=== PATIENT | male | born 1955 | race Caucasian/White ===

== ENCOUNTER 2017-10-23 11:59 | Emergency (ER) | payer OTHER ==
[~2017-10-23] VITALS: Ht 177.8 cm; Wt 111.1 kg
[~2017-10-23 11:59] MED LIST: AMLODIPINE BESYL5 MG PO; CLONIDINE HCL0.3 MG PO; HYDRALAZINE HCL25 MG PO; HYDROCHLOROTHIA25 MG PO; LABETALOL HCL300 MG PO; PRAVASTATIN SOD40 MG PO; TORSEMIDE20 MG PO
--- OUTSIDE RECORDS SUMMARY | 2017-10-23 12:01 | XMS REPORT | Clinical Summary ---
Author Author GUS GTxSt. Luke'S Meridian Medical CenterAyi Laile [facility] CenterNoiseFreeKadlec [facility] Address Unknown Phone Unavailable Care Team Providers Care Clam Shucker Name Role Phone PCP Unavailable Allergies Active Allergy Reactions Severity Noted Date Comments Atorvastatin Other (See Comments) High 04/30/2015 Joint pain Could not walk Current Medications Prescription Sig. Disp. Refills Start End Date Status Date rivaroxaban (XARELTO) 20 Take 1 tablet (20 mg 90 tablet 3 05/01/20 Active mg Tab tablet total) by mouth daily 15 with dinner. aspirin 81 MG EC tablet Take 81 mg by mouth Active daily. torsemide (DEMADEX) 20 MG Take 20 mg by mouth Active tablet daily. ezetimibe (ZETIA) 10 mg Take 10 mg by mouth Active tablet daily. spironolactone Take 25 mg by mouth Active (ALDACTONE) 25 MG tablet daily. cloNIDine HCl (CATAPRES) Take 1 tablet (0.2 mg 60 tablet 3 10/09/19 10/09/19 Active 0.2 MG tablet total) by mouth 2 (two) 18 19 times daily. colchicine (COLCRYS) 0.6 Take 0.5 tablets (0.3 mg 60 tablet 0 10/08/ 20 Active mg tablet total) by mouth 2 (two) 18 times daily Takes 1/2 tablet twice a day . dilTIAZem (CARDIZEM CD) Take 1 capsule (180 mg 90 capsule 3 10/18/19 10/18/19 Active 180 MG 24 hr capsule total) by mouth daily. 18 19 metoprolol 75 mg Tab Take 150 mg by mouth 2 90 tablet 3 10/18/1908/03 Active (two) times daily. 18 19 amiodarone (PACERONE) 400 Take 1 tablet (400 mg 90 tablet 3 10/18/19 10/18/19 Active MG tablet total) by mouth 2 (two) 18 19 times daily. hydrochlorothiazide Take 25 mg by mouth daily 10/06/19 Discontin (HYDRODIURIL) 25 MG . 18 ued tablet pravastatin (PRAVACHOL) Take 40 mg by mouth 10/07/19 Discontin 40 MG tablet nightly. 18 ued labetalol (NORMODYNE) 300 Take 1.5 tablets (450 mg 180 tablet 0 10/07/19 Discontin MG tablet total) by mouth 2 (two) 15 18 ued times daily. diltiazem (CARDIZEM CD) Take 360 mg by mouth 10/09/19 Discontin 360 MG 24 hr capsule daily. 18 ued hydrALAZINE (APRESOLINE) Take 100 mg by mouth 2 10/18/19 Discontin 50 MG tablet (two) times daily as 18 ued needed. nebivolol (BYSTOLIC) 20 Take by mouth. 10/18/19 Discontin mg Tab 18 ued cloNIDine HCl (CATAPRES) Take 0.3 mg by mouth as 10/09/19 Discontin 0.3 MG tablet needed Takes 1/2 tab as 18 ued needed . colchicine (COLCRYS) 0.6 Take 0.6 mg by mouth 2 10/09/19 Discontin mg tablet (two) times daily Takes 18 ued 1/2 tablet twice a day . dofetilide (TIKOSYN) 500 Take 1 capsule (500 mcg 60 capsule 3 10/18/19 Discontin MCG capsule total) by mouth every 12 18 18 ued (twelve) hours for 14 days. Active Problems Problem Noted Date Atrial fibrillation with RVR ([facility]) 10/11/2017 A-fib ([facility]) 10/06/2017 Alcoholism (HCC) 07/02/2015 Volume overload 07/02/2015 Acute systolic congestive heart failure ([facility]) 07/02/2015 HTN (hypertension) 06/05/2015 Atrial fibrillation with rapid ventricular response ([facility]) 04/30/2015 Encounters Date Type Specialty Care Team Description 10/11/2017 [facility] Cardiology SpencerBrigido MD Atrial fibrillation with - Encounter Chilo Brown MD RVR ([facility]) (Primary 10/17/2017 Marlon Luo MD Dx);Acute systolic congestive heart failure ([facility]);NSTEMI (non-ST elevated myocardial infarction) (HCC);Secondary hypertension 10/06/2017 [facility] Cardiology Ruben Hassan MD Acute systolic congestive - Encounter heart failure (HCC) 10/09/2017 10/06/2017 Orders Only General Internal Medicine 10/06/2017 Anesthesia Phillip Darby MD Event 10/06/2017 Procedure Pass 10/06/2017 Surgery Ruben Hassan MD LEFT ATRIAL APPENDAGE CLOSURE W/ IMPLANT MCR - IP PROC ONLY 09/21/2017 Hospital Radiology Ruben Hassan MD Examination of Encounter participant in clinical trial;Persistent atrial fibrillation (HCC) 09/14/2017 Outside Orders Central Scheduling Ruben Hassan MD Examination of participant in clinical trial (Primary Dx);Persistent atrial fibrillation (HCC) 09/09/2017 Documentation Research Ruben Hassan MD after 10/22/2016 Family History Medical History Relation Name Comments Heart attack Mother Hypertension Mother Relation Name Status Comments Father Mother Social History Tobacco Use Types Packs/Day Years Used Date Former Smoker 1.5 40 Smokeless Tobacco: Never Used Comments: quit in 2011 Alcohol Use Drinks/Week oz/Week Comments Yes 60 Cans of 36.0 beer Sex Assigned at Date Recorded Not on file Last Filed Vital Signs Vital Sign Reading Time Taken Blood Pressure 143/92 10/17/2017 10:00 AM CDT Pulse 108 10/17/2017 10:00 AM CDT Temperature 36.7 C (98 F) 10/17/2017 7:00 AM CDT Respiratory Rate 20 10/17/2017 10:00 AM CDT Oxygen Saturation 96% 10/17/2017 6:00 AM CDT Inhaled Oxygen - - Concentration Weight 104.2 kg (229 lb 12.8 oz) 10/15/2017 4:45 AM CDT Height 177.8 cm (5' 10") 10/11/2017 3:54 PM CDT Body Mass Index 32.97 10/15/2017 4:45 AM CDT Plan of Treatment Date Type Specialty Care Team Description 10/25/2017 Office Visit Cardiology Brad Dickson NP [address] [facility] [place] [address] 11/05/2017 Orders Only Lab Ruben Hassan MD [address] [facility] [address] [place] [address] 11/05/2017 Appointment Cardiology Ruben Hassan MD [address] [facility] [address] [place] [address] [phone] 11/19/2017 Surgery Ruben Hassan MD EPS & ABLATION [address] [facility] [address] [place] [address] [phone] 11/19/2017 Procedure Pass 11/19/2017 Hospital Ruben Hassan MD Encounter [address] [facility] [address] [place] [address] [phone] Implants Implanted Type Area Shank Maker Device Expiration Model / Identifier Date Serial / [facility] N/A: Heart [employer] 05/19/2019 90-09 / Implanted: Qty: 1 on 10/06/2017 by shauna / Ruben Hassan MD [id number] Procedures Procedure Name Priority Date/Time Associated Diagnosis Comments CRITICAL CARE Routine 10/13/2017 Results for this 3:35 PM CDT procedure are in the results section. LEFT ATRIAL APPENDAGE 10/06/2017 Atrial fibrillation, CLOSURE W/ IMPLANT MCR 7:30 AM CDT unspecified type (HCC) - IP PROC ONLY Case Notes (1) POP6 (CV ANES) BACK UP SURG/JULIOCESAR IN AM [facility] TRIAL after 10/22/2016 Results * RHYTHM STRIP - SCAN (10/19/2017 3:00 PM) Only the most recent of 2 results within the time period is included. * CBC with platelet count + automated diff (10/17/2017 2:51 AM) Only the most recent of 3 results within the time period is included. Component Value Ref Range WBC 8.5 3.5 - 10.5 K/ L RBC 4.18 (L) 4.63 - 6.08 M/ L Hemoglobin 12.2 (L) 13.7 - 17.5 GM/DL Hematocrit 37.4 (L) 40.1 - 51.0 % MCV 89.5 79.0 - 92.2 fL MCH 29.2 25.7 - 32.2 pg MCHC 32.6 32.3 - 36.5 GM/DL RDW 13.5 11.6 - 14.4 % Platelets 343 150 - 450 K/CU MM MPV 10.6 9.4 - 12.4 fL nRBC 0 0 - 0 /100 WBC % Neutros 75 % % Lymphs 10 % % Monos 13 % % Eos 1 % % Baso 0 % # Neutros 6.40 (H) 1.78 - 5.38 K/ L # Lymphs 0.87 (L) 1.32 - 3.57 K/ L # Monos 1.08 (H) 0.30 - 0.82 K/ L # Eos 0.09 0.04 - 0.54 K/ L # Baso 0.02 0.01 - 0.08 K/ L Immature 0 0 - 1 % Granulocytes-Relative Specimen Performing Laboratory Blood - Line, [place] [address] * CBC with platelet count + automated diff (10/17/2017 2:51 AM) Only the most recent of 3 results within the time period is included. Specimen Performing Laboratory Blood Narrative The following orders were created for panel order CBC with platelet count + automated diff. Procedure Abnormality Status --------- - ------ CBC with platelet count ...[[id number]]AbnormalFinal result Please view results for these tests on the individual orders. * Magnesium (10/17/2017 2:51 AM) Only the most recent of 11 results within the time period is included. Component Value Ref Range Magnesium 2.2Comment: Specimen slightly hemolyzed 1.6 - 2.6 mg/dL Specimen Performing Laboratory Blood - Line, Venous [place] [id number] * Basic Metabolic Panel (10/17/2017 2:51 AM) Only the most recent of 4 results within the time period is included. Component Value Ref Range Sodium 130 (L) 136 - 145 meq/L Potassium 4.8Comment: Specimen slightly hemolyzed 3.5 - 5.1 meq/L Chloride 97 (L) 98 - 107 meq/L CO2 23 22 - 29 meq/L BUN 18 7 - 21 mg/dL Creatinine 1.02Comment: Specimen slightly hemolyzed 0.57 - 1.25 mg/dL Glucose 98 70 - 105 mg/dL Calcium 8.3 (L) 8.4 - 10.2 mg/dL EGFR 74Comment: ESTIMATED GFR IS NOT ACCURATE mL/min/1.73 sq m CREATININE CLEARANCE IN PREDICTING GLOMERULAR FILTRATION RATE. ESTIMATED GFR IS NOT APPLICABLE FOR DIALYSIS PATIENTS. Specimen Performing Laboratory Blood - Line, [place] [address] [address] * Phosphorus (10/16/2017 5:51 AM) Only the most recent of 5 results within the time period is included. Component Value Ref Range Phosphorus 3.7 2.3 - 4.7 mg/dL Specimen Performing Laboratory Blood - Line, Venous [address] [address] * ED ECG Interpretation (10/13/2017 3:35 PM) Brigido Wilson MD 10/13/20173:35 PM ECG/EKG Interpretation Date/Time: 10/11/2017 4:00 PM Performed by: BRIGIDO VELÁZQUEZ Authorized by: BRIGIDO VELÁZQUEZ The ECG was interpreted by ED physician. The ECG is interpreted as atrial fibrillation. Rate is tachycardic. Heart rate is 143 BPM. Conduction: conduction normal. ST segments normal. T waves normal. [place] is normal. Clinical Impression: abnormal ECGECG reviewed and does not meet STEMI criteria. Patient tolerance: Patient tolerated the procedure well with no immediate complications * Critical Care (10/13/2017 3:35 PM) Brigido Wilson MD 10/13/20173:35 PM Critical Care Performed by: BRIGIDO VELÁZQUEZ Authorized by: BRIGIDO VELÁZQUEZ Total critical care time: 60 minutes Critical care time was exclusive of separately billable procedures and treating other patients and teaching time. Critical care was necessary to treat or prevent imminent or life-threatening deterioration of the following conditions: cardiac failure (afib RVR. NSTEMI). Critical care was time spent personally by me on the following activities: development of treatment plan with patient or surrogate, discussions with consultants, blood draw for specimens, interpretation of cardiac output measurements, evaluation of patient's response to treatment, examination of patient, ordering and review of laboratory studies, ordering and performing treatments and interventions, obtaining history from patient or surrogate, ordering and review of radiographic studies, pulse oximetry, re-evaluation of patient's condition and review of old charts. * EKG-SCANNED (10/13/2017 1:00 PM) * ECHOCARDIOGRAM REPORT - SCAN (10/12/2017 4:21 PM) Only the most recent of 2 results within the time period is included. * Troponin I (10/12/2017 12:28 PM) Only the most recent of 4 results within the time period is included. Component Value Ref Range Troponin I 0.58 () 0.00 - 0.03 ng/mL Specimen Performing Laboratory Blood - Arm, [place] [address] Narrative Troponin I (TnI) levels must be interpreted in the context of the presenting symptoms and the clinical findings. Elevated TnI levels indicate myocardial damage, but are not specific for ischemic heart disease. Elevated TnI levels are seen in patients with other cardiac conditions (including myocarditis and congestive heart failure), and slight TnI elevations occur in patients with other conditions, including sepsis, renal failure, acidosis, acute neurological disease, and persistent tachyarrhythmia. * Transthoracic 2D echo w/ doppler (cw/pw/color) (10/12/2017 9:25 AM) Component Value Ref Range Ejection Fraction Specimen Performing Laboratory [facility] ECHO HEART[facility] MKCKESSON CPACS Narrative Transthoracic Echocardiography Report (TTE) Demographics Patient Name Yanelis GUARDADO of Study10/12/2017 IVÁN [id number] Male Visit Number [id number] [id number] Room LaimveB450 Number Date of Birth1955Referring Seun Page Physician Age62 year(s)Urology Physician Lizz Leone, RADHA Macias, Interpreting Silas Monroy MD Procedure Type of Study TTE procedure:2DECHO W DOPPLER(CW/PW/COLOR) (IJEOMA) Indications:Suspected Pericardial conditions. Clinical History HGB 13.7 HCT 42.9 % CHF, A-fib, HLD, HTN, JACK, Alcoholism s/p Lariat (10/06/2017) Height: 70 inches Weight: 103.87 kg (229 lbs) BSA: 2.21 m^2 BMI: 32.86 kg/m^2 HR: 145 bpm BP: 170/112 mmHg Summary Aortic root size (SInus of Valsalva diameter) is normal . The left ventricle is chamber size (by vol index) is small. Mild concentric LV hypertrophy. Global hypokinesis. Estimated LVEF by qualitative assessment is mildly reduced (40-44%) . Estimation of LV systolic function is less reliable in the presence of tachycardia. A mlcof-eu-aiulwbjl pericardial effusion is present . The pericardial effusion appears circumferential . RV chamber size appears mildly enlarged by limited views . Global RV systolic function is depressed . TV structure is normal. Mild tricuspid regurgitation. Estimated peak systolic PA pressure is 60-65 mmHg . The estimated RA pressure by IVC dynamics 11-15mmHg . Previous Study No prior exam available for comparison. Signature Findings Technical Quality: Technically adequate exam. Rhythm/BPAtrial fibrillation with rapid ventricular response. Left Ventricle The left ventricle is chamber size (by vol index ) is small. Mild concentric LV hypertrophy. Global hypokinesis. Estimated LVEF by qualitative assessment is mildly reduced (40-44%) . Estimation of LV systolic function is less reliable in the presence of tachycardia. Left AtriumLA size is moderately enlarged (42-48 ml/m2 ) . Right VentricleRV chamber size appears mildly enlarged by limited views . Global RV systolic function is depressed . Right Atrium RA cavity size is severely enlarged . Aortic Valve Mild AoV cusp thickening. No evidence of aortic regurgitation. No evidence of aortic stenosis. Mitral Valve Mild MV leaflet thickening. Mild mitral regurgitation. Tricuspid ValveTV structure is normal. Mild tricuspid regurgitation. Estimated peak systolic PA pressure is 60-65 mmHg . Pulmonic Valve Mild pulmonary regurgitation. Normal PV structure appears normal by available views. AortaAortic root size (SInus of Valsalva diameter) is normal . PericardiumA lhbcd-re-fmtksufd pericardial effusion is present . The pericardial effusion appears circumferential . IVC/SVC/PA/PV/PleuralThe estimated RA pressure by IVC dynamics 11-15mmHg . The inferior vena cava size is increased . The inferior vena cava is adequately visualized. Chambers/Structures Left Atrium LA Volume: 99.68 ml LA Area: 28.41 cm^2 LA Vol. Index: 45 ml/m^2 Left Ventricle LVIDd: 3.92 cm LV Septum Diastolic: 1.29 cm LV PW Diastolic: 1.29 cm LVEDV Perry's:74.55 ml LVESV Perry's:39.89 ml LVEF Perry's: 46.5 %LVEDVI: 34 ml /m^2 LVESVI: 18 ml/m^2 LVOT Diameter: 2.13 cm Aorta Ao Root S of Maria Esther.: 3.42 cm Doppler/Quantitative Measurements Aortic Valve Peak Velocity: 1.08 m/sMean Velocity: 0.75 m/s Peak Gradient: 4.67 mmHg Mean Gradient: 2.59 mmHg AV Area (continuity): 2.7 cm^2 AV VTI: 15.08 cm AV DVI: 0.76 LVOT Peak Velocity: 0.78 m/s Peak Gradient: 2.45 mmHg Mean Velocity: 0.52 m/s Mean Gradient: 1.26 mmHg LVOT Diameter: 2.13 cmLVOT VTI: 11.42 cm LVOT Area: 3.56 cm^2LVOT SV:40.67 ml LVOT CO: 5.9 l/minLVOT CI: 2.67 l/min/m^2 Tricuspid Valve TR Velocity: 3.7 m/s TR Gradient: 54.9 mmHg Procedure Note Interface, External Ris In - 10/12/2017 3:52 PM CDT Transthoracic Echocardiography Report (TTE) Demographics Patient Name IWONA GUARDADO Date of Study 10/12/2017 IVÁN Gender Male Visit Number [id number] Race Room Number C831 Number Date of 1955 Referring Seun Page Physician Age 62 year(s) Urology Physician Lizz Leone, [facility] Care Tech Chasidy Macias, Interpreting Semaj Montes [facility] Physician Procedure Type of Study TTE procedure:2DECHO W DOPPLER(CW/PW/COLOR) ([facility]) Indications:Suspected Pericardial conditions. Clinical History HGB 13.7 HCT 42.9 % CHF, A-fib, HLD, HTN, JACK, Alcoholism s/p Lariat (10/06/2017) Height: 70 inches Weight: 103.87 kg (229 lbs) BSA: 2.21 m^2 BMI: 32.86 kg/m^2 HR: 145 bpm BP: 170/112 mmHg Summary Aortic root size (SInus of Valsalva diameter) is normal . The left ventricle is chamber size (by vol index) is small. Mild concentric LV hypertrophy. Global hypokinesis. Estimated LVEF by qualitative assessment is mildly reduced (40-44%) . Estimation of LV systolic function is less reliable in the presence of tachycardia. A olsnx-zm-qqioypfz pericardial effusion is present . The pericardial effusion appears circumferential . RV chamber size appears mildly enlarged by limited views . Global RV systolic function is depressed . TV structure is normal. Mild tricuspid regurgitation. Estimated peak systolic PA pressure is 60-65 mmHg . The estimated RA pressure by IVC dynamics 11-15mmHg . Previous Study No prior exam available for comparison. Signature Findings Technical Quality: Technically adequate exam. Rhythm/BP Atrial fibrillation with rapid ventricular response. Left Ventricle The left ventricle is chamber size (by vol index) is small. Mild concentric LV hypertrophy. Global hypokinesis. Estimated LVEF by qualitative assessment is mildly reduced (40-44%) . Estimation of LV systolic function is less reliable in the presence of tachycardia. Left Atrium LA size is moderately enlarged (42-48 ml/m2) . Right Ventricle RV chamber size appears mildly enlarged by limited views . Global RV systolic function is depressed . Right Atrium RA cavity size is severely enlarged . Aortic Valve Mild AoV cusp thickening. No evidence of aortic regurgitation. No evidence of aortic stenosis. Mitral Valve Mild MV leaflet thickening. Mild mitral regurgitation. Tricuspid Valve TV structure is normal. Mild tricuspid regurgitation. Estimated peak systolic PA pressure is 60-65 mmHg . Pulmonic Valve Mild pulmonary regurgitation. Normal PV structure appears normal by available views. Aorta Aortic root size (SInus of Valsalva diameter) is normal . Pericardium A mgemj-yr-hxxpfplp pericardial effusion is present . The pericardial effusion appears circumferential . IVC/SVC/PA/PV/Pleural The estimated RA pressure by IVC dynamics 11-15mmHg . The inferior vena cava size is increased . The inferior vena cava is adequately visualized. Chambers/Structures Left Atrium LA Volume: 99.68 ml LA Area: 28.41 cm^2 LA Vol. Index: 45 ml/m^2 Left Ventricle LVIDd: 3.92 cm LV Septum Diastolic: 1.29 cm LV PW Diastolic: 1.29 cm LVEDV Perry's:74.55 ml LVESV Perry's:39.89 ml LVEF Perry's: 46.5 % LVEDVI: 34 ml/m^2 LVESVI: 18 ml/m^2 LVOT Diameter: 2.13 cm Aorta Ao Root S of Maria Esther.: 3.42 cm Doppler/Quantitative Measurements Aortic Valve Peak Velocity: 1.08 m/s Mean Velocity: 0.75 m/s Peak Gradient: 4.67 mmHg Mean Gradient: 2.59 mmHg AV Area (continuity): 2.7 cm^2 AV VTI: 15.08 cm AV DVI: 0.76 LVOT Peak Velocity: 0.78 m/s Peak Gradient: 2.45 mmHg Mean Velocity: 0.52 m/s Mean Gradient: 1.26 mmHg LVOT Diameter: 2.13 cm LVOT VTI: 11.42 cm LVOT Area: 3.56 cm^2 LVOT SV:40.67 ml LVOT CO: 5.9 l/min LVOT CI: 2.67 l/min/m^2 Tricuspid Valve TR Velocity: 3.7 m/s TR Gradient: 54.9 mmHg * CBC (Hemogram only) (10/12/2017 5:32 AM) Only the most recent of 4 results within the time period is included. Component Value Ref Range WBC 10.8 (H) 3.5 - 10.5 K/ L RBC 4.77 4.63 - 6.08 M/ L Hemoglobin 13.7 13.7 - 17.5 GM/DL Hematocrit 42.9 40.1 - 51.0 % MCV 89.9 79.0 - 92.2 fL MCH 28.7 25.7 - 32.2 pg MCHC 31.9 (L) 32.3 - 36.5 GM/DL RDW 13.6 11.6 - 14.4 % Platelets 281 150 - 450 K/CU MM MPV 10.9 9.4 - 12.4 fL nRBC 0 0 - 0 /100 WBC Specimen Performing [place] [address] * XR chest 1 view portable / bedside (10/11/2017 5:58 PM) Specimen Performing Laboratory GE RIS Narrative FINAL REPORT Chest, one view HISTORY: Chest pain COMPARISON: 04/30/2015 DISCUSSION: Lungs are clear without focal consolidation. Cardiomediastinal silhouette is persistently enlarged but unchanged from prior examination. No acute osseous abnormality. Trace left pleural effusion. No pneumothorax. Visualized portions of the upper abdomen are unremarkable. IMPRESSION: Unchanged enlargement of the cardiomediastinal silhouette. Trace left pleural effusion. Signed: Kush Garcia MD Report Verified Date/Time:10/11/2017 18:15:43 Reading Location: [address] Body Reading Room Procedure Note Interface, External Ris In - 10/11/2017 6:18 PM CDT FINAL REPORT Chest, one view HISTORY: Chest pain COMPARISON: 04/30/2015 DISCUSSION: Lungs are clear without focal consolidation. Cardiomediastinal silhouette is persistently enlarged but unchanged from prior examination. No acute osseous abnormality. Trace left pleural effusion. No pneumothorax. Visualized portions of the upper abdomen are unremarkable. IMPRESSION: Unchanged enlargement of the cardiomediastinal silhouette. Trace left pleural effusion. Signed: Kush Garcia MD Report Verified Date/Time: 10/11/2017 18:15:43 Reading Location: [address] Body Reading Room * POC-Lactic Acid, Venous (10/11/2017 4:24 PM) Component Value Ref Range POC-Lactic Acid, Venous 1.3Comment: TESTED AT [address] 0.9 - 1.7 mmol/[place] [address] Specimen Performing Laboratory Blood [address] [address] * Manual Differential (10/11/2017 4:10 PM) Component Value Ref Range % Neutros 76 % % Lymphs 13 % % Monos 9 % % Bands 1 0 - 10 % % Atypical Lymphs 1 (H) 0 - 0 % # Neutros 8.44 (H) 1.78 - 5.38 K/ul # Lymphs 1.44 1.32 - 3.57 K/ul # Monos 1.00 (H) 0.30 - 0.82 K/uL # Bands 0.11 0.00 - 0.80 K/uL # Atypical Lymphs 0.11 (H) 0.00 - 0.00 K/uL Total Counted 100 Smudge Cells Present Giant Platelet Present Polychromasia 1+ few Poikilocytes 1+ few Elliptocytes 1+ few Platelet Conc Adequate Specimen Performing Laboratory Blood [address] [address] Narrative Received comment: User comments: Slide comments: * PT/aPTT (10/11/2017 4:10 PM) Component Value Ref Range Protime 23.9 (H) 11.7 - 14.7 seconds INR 2.1 <=5.9 PTT 40.0 (H) 22.5 - 36.0 seconds Specimen Performing Laboratory Blood [address] [address] Narrative RECOMMENDED COUMADIN/WARFARIN INR THERAPY RANGES STANDARD DOSE: 2.0 - 3.0 Includes: PROPHYLAXIS for venous thrombosis, systemic embolization; TREATMENT for venous thrombosis and/or pulmonary embolus. HIGH RISK: Target INR is 2.5-3.5 for patients with mechanical heart valves. * B-type Natriuretic Factor (BNP) (10/11/2017 4:10 PM) Component Value Ref Range BNP 1212 (H) 0 - 100 pg/mL Specimen Performing Laboratory Blood [address] [place] [address] * Lipase (10/11/2017 4:10 PM) Component Value Ref Range Lipase 42 8 - 78 U/L Specimen Performing Laboratory Blood [address] [address] * Comprehensive metabolic panel (10/11/2017 4:10 PM) Component Value Ref Range Protein, Total 7.3 6.0 - 8.3 gm/dL Albumin 3.9 3.5 - 5.0 g/dL Alkaline Phosphatase 106 40 - 150 U/L Total Bilirubin 1.2 0.2 - 1.2 mg/dL Sodium 135 (L) 136 - 145 meq/L Potassium 4.0 3.5 - 5.1 meq/L Chloride 101 98 - 107 meq/L CO2 22 22 - 29 meq/L BUN 19 7 - 21 mg/dL Creatinine 1.04 0.57 - 1.25 mg/dL Glucose 116 (H) 70 - 105 mg/dL Calcium 9.6 8.4 - 10.2 mg/dL AST 58 (H) 5 - 34 U/L ALT 61 (H) 6 - 55 U/L EGFR 72Comment: ESTIMATED GFR IS NOT ACCURATE mL/min/1.73 sq m CREATININE CLEARANCE IN PREDICTING GLOMERULAR FILTRATION RATE. ESTIMATED GFR IS NOT APPLICABLE FOR DIALYSIS PATIENTS. Specimen Performing Laboratory Blood [address] [address] * ECG 12 lead (10/11/2017 4:00 PM) Only the most recent of 8 results within the time period is included. Specimen Performing Laboratory GE MUSE Narrative Ventricular Rate 143 BPM Atrial Rate 133 BPM QRS Duration 86 ms Q-T Interval 280 ms QTC Calculation(Bazett) 432 ms R [place] 53 degrees T [place] 66 degrees Atrial fibrillation with rapid ventricular response Abnormal ECG When compared with ECG of 09-OCT-2017 11:10, No significant change was found Confirmed by MD MYLES, JOHNY Desai ([id number]) on 10/12/2017 6:23:59 AM Procedure Note Interface, External Ris In - 10/12/2017 6:24 AM CDT Ventricular Rate 143 BPM Atrial Rate 133 BPM QRS Duration 86 ms Q-T Interval 280 ms QTC Calculation(Bazett) 432 ms R [place] 53 degrees T [place] 66 degrees Atrial fibrillation with rapid ventricular response Abnormal ECG When compared with ECG of 09-OCT-2017 11:10, No significant change was found Confirmed by MD MYLES, JOHNY Desai ([id number]) on 10/12/2017 6:23:59 AM * POC-Glucose meter (10/09/2017 7:59 AM) Only the most recent of 6 results within the time period is included. Component Value Ref Range POC-Glucose Meter 102Comment: TESTED AT [address] 70 - 110 mg/[place] [address] Specimen [place] [address] * BUN (10/09/2017 5:46 AM) Only the most recent of 3 results within the time period is included. Component Value Ref Range BUN 22 (H) 7 - 21 mg/dL Specimen Performing Laboratory Blood [address] [address] * Potassium (10/09/2017 5:46 AM) Only the most recent of 4 results within the time period is included. Component Value Ref Range Potassium 4.1 3.5 - 5.1 meq/L Specimen Performing Laboratory [address] [address] * Creatinine (10/09/2017 5:46 AM) Only the most recent of 3 results within the time period is included. Component Value Ref Range Creatinine 0.94 0.57 - 1.25 mg/dL EGFR 81Comment: ESTIMATED GFR IS NOT ACCURATE mL/min/1.73 sq m CREATININE CLEARANCE IN PREDICTING GLOMERULAR FILTRATION RATE. ESTIMATED GFR IS NOT APPLICABLE FOR DIALYSIS PATIENTS. Specimen Performing Laboratory [address] [address] * Electrolytes (10/09/2017 5:46 AM) Only the most recent of 3 results within the time period is included. Component Value Ref Range Sodium 137 136 - 145 meq/L Potassium 4.1 3.5 - 5.1 meq/L Chloride 103 98 - 107 meq/L CO2 24 22 - 29 meq/L Specimen Performing Laboratory [place] [id number] * TRANSFUSION SERVICE REPORT - SCAN (10/07/2017 5:42 PM) * CARDIAC CATH REPORT - SCAN (10/07/2017 3:10 PM) * POC ACTIVATED CLOTTING TIME (10/06/2017 10:49 AM) Only the most recent of 3 results within the time period is included. Component Value Ref Range Activated Clotting Time 136Comment: TESTED AT [facility] [address] [facility] [address] Specimen Performing Laboratory Blood [facility] [address] [place] [address] * Transesophageal echo (10/06/2017 8:07 AM) Component Value Ref Range Ejection Fraction Specimen Performing Laboratory [facility] CPACS Narrative Transesophageal Echocardiography Report (JULIOCESAR) Demographics Patient Name IWONA GUARDADO Date of Study 10/06/2017 IVÁN [id number] Gender Male Visit Number [id number] Race Unknown [id number] Number 6A03 Number Date of Birth1955 Referring Physician Age62 year(s) Urology Physician Floyd Boggs [facility] ReneeStshaylee Carrera MD Fellow Junior Rhoades Procedure Type of Study JULIOCESAR procedure:TRANSESOPHAGEAL ECHO (STAT) Indications:Guidance of percuataneous non coronary cardiac procedures. Clinical History A-FIB, CHF, HLD, HTN, JACK, ETOH ABUSE Height: 70 inches Weight: 106.59 kg (235 lbs) BSA: 2.24 m^2 BMI: 33.72 kg/m^2 HR: 117 bpm BP: 141/81 mmHg JULIOCESAR Performed By: the attending alone Signature Findings LeftNormal left ventricular chamber size. Normal wall thickness. Ventricle Normal overall left ventricular systolic function. No apparent segmental wall motion abnormalities. Left Atrium LA size is normal . LA appendage morphology is simple (wind sock). Images demonstrate interval closure of the MADELIN. The MADELIN appears excluded without evidence of doppler color flow. Right The right ventricular chamber size and systolic function are Ventricle within normal limits. Right RA size is severely dilated. Atrium AtrialA small iatrogenic atrial septal defect (ASD) is present . Septum AorticNormal AoV structure and function. Valve No evidence of aortic regurgitation. MitralNormal MV structure. Valve Mild mitral regurgitation. Tricuspid TV structure is normal. Valve Mild tricuspid regurgitation. Aorta Aortic root size (SInus of Valsalva diameter) is normal . Proximal ascending aorta size is normal . Doppler/Quantitative Measurements Tricuspid Valve TR Velocity: 2.64 m/s TR Gradient: 27.95 mmHg Procedure Note Interface, External Ris In - 10/06/2017 6:43 PM CDT Transesophageal Echocardiography Report (JULIOCESAR) Demographics Patient Name IWONA GUARDADO Date of Study 10/06/2017 IVÁN Gender Male Visit Number [id number] Race Unknown Room Number 6A03 Number Date of 1955 Referring Physician Age 62 year(s) Urology Physician Floyd Boggs [facility] Interpreting Willow Carrera MD Fellow Junior Rhoades Procedure Type of Study JULIOCESAR procedure:TRANSESOPHAGEAL ECHO (STAT) Indications:Guidance of percuataneous non coronary cardiac procedures. Clinical History A-FIB, CHF, HLD, HTN, JACK, ETOH ABUSE Height: 70 inches Weight: 106.59 kg (235 lbs) BSA: 2.24 m^2 BMI: 33.72 kg/m^2 HR: 117 bpm BP: 141/81 mmHg JULIOCESAR Performed By: the attending alone Signature Findings Left Normal left ventricular chamber size. Normal wall thickness. Ventricle Normal overall left ventricular systolic function. No apparent segmental wall motion abnormalities. Left Atrium LA size is normal . LA appendage morphology is simple (wind sock). Images demonstrate interval closure of the MADELIN. The MADELIN appears excluded without evidence of doppler color flow. Right The right ventricular chamber size and systolic function are Ventricle within normal limits. Right RA size is severely dilated. Atrium Atrial A small iatrogenic atrial septal defect (ASD) is present . Septum Aortic Normal AoV structure and function. Valve No evidence of aortic regurgitation. Mitral Normal MV structure. Valve Mild mitral regurgitation. Tricuspid TV structure is normal. Valve Mild tricuspid regurgitation. Aorta Aortic root size (SInus of Valsalva diameter) is normal . Proximal ascending aorta size is normal . Doppler/Quantitative Measurements Tricuspid Valve TR Velocity: 2.64 m/s TR Gradient: 27.95 mmHg * Type and screen, automated (10/06/2017 5:55 AM) Component Value Ref Range ABO/RH AUTOMATED (BEAKER) B POSITIVE Ab Scrn NEGATIVE Specimen Performing Laboratory Blood [facility] [address] [address] * CT heart without & with gating & 3d (09/21/2017 9:08 AM) Specimen Performing Laboratory [employer] [facility] Narrative Addendum Begins REPORT STATUS:A ADDENDUM: Study reviewed by radiology. Agree with the nonvascular findings as described below. Signed: Pj Bennett MD Report Verified Date/Time:09/21/2017 15:11:13 Reading Location: [place] [address] Angio Body Reading Room Addendum Ends FINAL REPORT CT angiography of the pulmonary veins, 21 Sep 2017 INDICATION: This is a 53years old male with history of atrial fibrillation presented here for IRB approved AMAZE protocol. This study is performed in an attempt to avoid invasive procedure. TECHNIQUE:Spiral acquisition before and during intravenous contrast administration using a Cleopatra multidetector cardiac CT scanner without prospective ECG triggering.Multiplanar reconstructions were performed interactively by the interpreting physician using an independent ([employer]) workstation. Please refer to the contrast sheet scanned in the EPIC system for the amount and route of contrast given. This exam was performed according to our departmental dose-optimisation programme, which includes automated exposure control, adjustment of the mA and/or kV according to patient size and/or use of iterative reconstruction technique. Dose modulation, iterative reconstruction, and/or weight based adjustment of the mA/kV was utilized to reduce the radiation dose to as low as reasonably achievable. ECG gating was required this examination. FINDINGS: VASCULAR: The pericardium appears normal. No pericardial effusion is identified. The central pulmonary artery is at the upper limits of normal in calibre. Interestingly, a pulmonary "sling" is identified, where the left ovary artery arises from the right coronary artery, and the left palm artery travels between the trachea and esophagus, for example image 25 of the 80% reconstruction. This is an anatomical variant. In the available images, no obvious compression or stenosis to the trachea is identified. The thoracic aorta is normal in course, calibre, and contour. There is no evidence for acute aortic pathology. The arch vessel branching pattern is normal, and the origins of the arch branch vessels are all widely patent. The cardiac chambers demonstrate normal atrioventricular and ventriculoarterial concordance, and systemic and pulmonary venous return. The left ventricle is normal in size, and no abnormal mass is identified. The coronary artery origins are normal. Coronary artery calcification is identified in the LAD, LCx, and RCA territories. Left and right atrial enlargement is identified. No thrombus is visualized in the left atrial appendage. The left atrial appendage pathology is not chicken wing. Pulmonary vein morphology is normal with pairs of pulmonary veins on each side of the left atrium. There is no evidence for pulmonary vein stenosis. Quantitative pulmonary vein ostial mapping (measured utilizing MPR analysis) is as follows: Pulmonary veinMajor axisMinor axisCross-sectional area * Right upper 26 mm 23 mm4.1 cm2 Right lower 25 mm 23 mm4.3 cm2 Left upper23 mm 11 mm2.0 cm2 Left lower 22 mm 10 mm1.6 cm2 NON-VASCULAR: In the noncontrast images, the visualised thyroid gland appears unremarkable. The chest wall and mediastinum appears normal. Some scattered lymph nodes are seen, less than 1 cm in size, considered nonspecific in nature. The lymph node in the right hilum could be minimally prominent, better seen in the contrast phase. Bilateral gynaecomastia is noted. In the lung windows, no obvious endobronchial lesion is seen and no pleural effusion is identified. Some debris is identified in the posterior aspect of the oesophagus, in the precontrast series. Minimal dependent changes are seen. Some scarring is identified in the left upper lobe at image 9. Overall, no suspicious pulmonary nodule is identified. Limited images of the upper abdomen reveals no gross abnormality. No acute bony pathology is identified, except for the presence of some degenerative changes. IMPRESSIONS: 1.The left atrium is enlarged.No thrombus is visualized in the left atrial appendage. The left atrial appendage pathology is not chickenwing. See snapshot for details. The core lab/pheresis specialist will provide measurement for the left atrial appendage for the AMAZE procedure. Coronary atherosclerosis in the left and the right coronary territories. 2.Pulmonary vein morphology is normal with pairs of pulmonary veins bilaterally.There is no evidence for pulmonary vein stenosis. Quantitative pulmonary vein ostial mapping is as noted above. 3.Normal thoracic aorta, where visualised. No ectasia or aneurysmal dilation is seen. Scattered calcification is seen in the descending thoracic aorta. 4.No acute pulmonary pathology. Pulmonary findings as described above. 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 5.Other findings as described above 6.An addendum will be dictated regarding the non-vascular findings by the [employer]iture [employer] Inspector Radiologist. Signed: Abdulkadir Wilkins MD Report Verified Date/Time:09/21/2017 09:49:51 Reading Location: [place] [address] Cardiology MRI Procedure Note Interface, External Ris In - 09/21/2017 3:13 PM CDT Addendum Begins REPORT STATUS:A ADDENDUM: Study reviewed by radiology. Agree with the nonvascular findings as described below. Signed: Pj Bennett MD Report Verified Date/Time: 09/21/2017 15:11:13 Reading Location: [place] [id number] Angio Body Reading Room Addendum Ends FINAL REPORT CT angiography of the pulmonary veins, 21 Sep 2017 INDICATION: This is a 53 years old male with history of atrial fibrillation presented here for IRB approved AMAZE protocol. This study is performed in an attempt to avoid invasive procedure. TECHNIQUE: Spiral acquisition before and during intravenous contrast administration using a Cleopatra multidetector cardiac CT scanner without prospective ECG triggering. Multiplanar reconstructions were performed interactively by the interpreting physician using an independent ([employer]) workstation. Please refer to the contrast sheet scanned in the EPIC system for the amount and route of contrast given. This exam was performed according to our departmental dose-optimisation programme, which includes automated exposure control, adjustment of the mA and/or kV according to patient size and/or use of iterative reconstruction technique. Dose modulation, iterative reconstruction, and/or weight based adjustment of the mA/kV was utilized to reduce the radiation dose to as low as reasonably achievable. ECG gating was required this examination. FINDINGS: VASCULAR: The pericardium appears normal. No pericardial effusion is identified. The central pulmonary artery is at the upper limits of normal in calibre. Interestingly, a pulmonary "sling" is identified, where the left ovary artery arises from the right coronary artery, and the left palm artery travels between the trachea and esophagus, for example image 25 of the 80% reconstruction. This is an anatomical variant. In the available images, no obvious compression or stenosis to the trachea is identified. The thoracic aorta is normal in course, calibre, and contour. There is no evidence for acute aortic pathology. The arch vessel branching pattern is normal, and the origins of the arch branch vessels are all widely patent. The cardiac chambers demonstrate normal atrioventricular and ventriculoarterial concordance, and systemic and pulmonary venous return. The left ventricle is normal in size, and no abnormal mass is identified. The coronary artery origins are normal. Coronary artery calcification is identified in the LAD, LCx, and RCA territories. Left and right atrial enlargement is identified. No thrombus is visualized in the left atrial appendage. The left atrial appendage pathology is not chicken wing. Pulmonary vein morphology is normal with pairs of pulmonary veins on each side of the left atrium. There is no evidence for pulmonary vein stenosis. Quantitative pulmonary vein ostial mapping (measured utilizing MPR analysis) is as follows: Pulmonary vein Major axis Minor axis Cross-sectional area * Right upper 26 mm 23 mm 4.1 cm2 Right lower 25 mm 23 mm 4.3 cm2 Left upper 23 mm 11 mm 2.0 cm2 Left lower 22 mm 10 mm 1.6 cm2 NON-VASCULAR: In the noncontrast images, the visualised thyroid gland appears unremarkable. The chest wall and mediastinum appears normal. Some scattered lymph nodes are seen, less than 1 cm in size, considered nonspecific in nature. The lymph node in the right hilum could be minimally prominent, better seen in the contrast phase. Bilateral gynaecomastia is noted. In the lung windows, no obvious endobronchial lesion is seen and no pleural effusion is identified. Some debris is identified in the posterior aspect of the oesophagus, in the precontrast series. Minimal dependent changes are seen. Some scarring is identified in the left upper lobe at image 9. Overall, no suspicious pulmonary nodule is identified. Limited images of the upper abdomen reveals no gross abnormality. No acute bony pathology is identified, except for the presence of some degenerative changes. IMPRESSIONS: 1. The left atrium is enlarged. No thrombus is visualized in the left atrial appendage. The left atrial appendage pathology is not chicken wing. See snapshot for details. The core lab/pheresis specialist will provide measurement for the left atrial appendage for the AMAZE procedure. Coronary atherosclerosis in the left and the right coronary territories. 2. Pulmonary vein morphology is normal with pairs of pulmonary veins bilaterally. There is no evidence for pulmonary vein stenosis. Quantitative pulmonary vein ostial mapping is as noted above. 3. Normal thoracic aorta, where visualised. No ectasia or aneurysmal dilation is seen. Scattered calcification is seen in the descending thoracic aorta. 4. No acute pulmonary pathology. Pulmonary findings as described above. 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 5. Other findings as described above 6. An addendum will be dictated regarding the non-vascular findings by the Furniture [employer]als Inspector Radiologist. Signed: Abdulkadir Wilkins MD Report Verified Date/Time: 09/21/2017 09:49:51 Reading Location: [place] [address] Cardiology MRI * BUN and Creatinine (09/21/2017 7:25 AM) Component Value Ref Range BUN 21 7 - 21 mg/dL Creatinine 1.07 0.57 - 1.25 mg/dL EGFR 70Comment: ESTIMATED GFR IS NOT ACCURATE mL/min/1.73 sq m CREATININE CLEARANCE IN PREDICTING GLOMERULAR FILTRATION RATE. ESTIMATED GFR IS NOT APPLICABLE FOR DIALYSIS PATIENTS. Specimen Performing Laboratory Blood [facility] [address] [address] after 10/22/2016
--- OUTSIDE RECORDS SUMMARY | 2017-10-23 12:01 | XMS REPORT ---
Author Author [facility] Address Unknown Phone Unavailable Care Team Providers Care Supervisor [facility] Name Role Phone CONCETTA VELÁZQUEZ Unavailable Unavailable ISAIAH JARRETT Unavailable Unavailable Problems This patient has no known problems. Allergies, Adverse Reactions, Alerts This patient has no known allergies or adverse reactions. Medications This patient has no known medications. Results Test Description Test Time Test Comments Text Results Atomic Results Result Comments MAGNESIUM 2017-10-17 03:20:00 MAGNESIUM (BEAKER) (test xcww=465) 2.2 mg/dL 1.6-2.6 Specimen slightly hemolyzed BASIC METABOLIC [id number] 03:20:00* Test Item Value Reference Range Comments SODIUM (BEAKER) (test lhtf=711) 130 meq/L 136-145 POTASSIUM (BEAKER) (test dfhv=094) 4.8 meq/L 3.5-5.1 Specimen slightly hemolyzed CHLORIDE (BEAKER) (test pxqx=515) 97 meq/L 98-107 CO2 (BEAKER) (test jhgs=163) 23 meq/L 22-29 BLOOD UREA NITROGEN (BEAKER) (test aptg=411) 18 mg/dL 7-21 CREATININE (BEAKER) (test ydlb=659) 1.02 mg/dL 0.57-1.25 Specimen slightly hemolyzed GLUCOSE RANDOM (BEAKER) (test ieia=328) 98 mg/dL 70-105 CALCIUM (BEAKER) (test ywwf=556) 8.3 mg/dL 8.4-10.2 EGFR (BEAKER) (test kbug=0561) 74 mL/min/1.73 sq m ESTIMATED GFR IS NOT ACCURATE CREATININE CLEARANCE IN PREDICTING GLOMERULAR FILTRATION RATE. ESTIMATED GFR IS NOT APPLICABLE FOR DIALYSIS PATIENTS. CBC W/PLT COUNT & AUTO [id number] 03:00:00* Test Item Value Reference Range Comments WHITE BLOOD CELL COUNT (BEAKER) (test uaon=306) 8.5 K/ L 3.5-10.5 RED BLOOD CELL COUNT (BEAKER) (test drle=080) 4.18 M/ L 4.63-6.08 HEMOGLOBIN (BEAKER) (test paue=570) 12.2 GM/DL 13.7-17.5 HEMATOCRIT (BEAKER) (test iyan=076) 37.4 % 40.1-51.0 MEAN CORPUSCULAR VOLUME (BEAKER) (test soiu=063) 89.5 fL 79.0-92.2 MEAN CORPUSCULAR HEMOGLOBIN (BEAKER) (test nblx=206) 29.2 pg 25.7-32.2 MEAN CORPUSCULAR HEMOGLOBIN CONC (BEAKER) (test vzre=917) 32.6 GM/DL 32.3- 36.5 RED CELL DISTRIBUTION WIDTH (BEAKER) (test zvrf=713) 13.5 % 11.6-14.4 PLATELET COUNT (BEAKER) (test xgkw=254) 343 K/CU MM 150-450 MEAN PLATELET VOLUME (BEAKER) (test hmgj=931) 10.6 fL 9.4-12.4 NUCLEATED RED BLOOD CELLS (BEAKER) (test rxbo=118) 0 /100 WBC 0-0 NEUTROPHILS RELATIVE PERCENT (BEAKER) (test bjbc=334) 75 % LYMPHOCYTES RELATIVE PERCENT (BEAKER) (test heqy=244) 10 % MONOCYTES RELATIVE PERCENT (BEAKER) (test vuxw=312) 13 % EOSINOPHILS RELATIVE PERCENT (BEAKER) (test aqke=241) 1 % BASOPHILS RELATIVE PERCENT (BEAKER) (test akyj=599) 0 % NEUTROPHILS ABSOLUTE COUNT (BEAKER) (test mlmv=504) 6.40 K/ L 1.78-5.38 LYMPHOCYTES ABSOLUTE COUNT (BEAKER) (test qsum=313) 0.87 K/ L 1.32-3.57 MONOCYTES ABSOLUTE COUNT (BEAKER) (test zrke=899) 1.08 K/ L 0.30-0.82 EOSINOPHILS ABSOLUTE COUNT (BEAKER) (test xyfc=412) 0.09 K/ L 0.04-0.54 BASOPHILS ABSOLUTE COUNT (BEAKER) (test kxkx=741) 0.02 K/ L 0.01-0.08 IMMATURE GRANULOCYTES-RELATIVE PERCENT (BEAKER) (test ebwm=3943) 0 % 0-1 [id number] 06:38:00* Test Item Value Reference Range Comments PHOSPHORUS (BEAKER) (test xkmw=349) 3.7 mg/dL 2.3-4.7 [id number] 06:38:00* Test Item Value Reference Range Comments MAGNESIUM (BEAKER) (test clxj=823) 2.5 mg/dL 1.6-2.6 [id number] 05:17:00* Test Item Value Reference Range Comments PHOSPHORUS (BEAKER) (test liqr=737) 3.2 mg/dL 2.3-4.7 [id number] 05:17:00* Test Item Value Reference Range Comments MAGNESIUM (BEAKER) (test orzv=291) 2.6 mg/dL 1.6-2.6 [id number] 05:32:00* Test Item Value Reference Range Comments PHOSPHORUS (BEAKER) (test gakf=450) 4.0 mg/dL 2.3-4.7 [id number] 05:32:00* Test Item Value Reference Range Comments MAGNESIUM (BEAKER) (test tbkg=893) 2.2 mg/dL 1.6-2.6 [id number] 06:09:00* Test Item Value Reference Range Comments PHOSPHORUS (BEAKER) (test cilg=128) 3.6 mg/dL 2.3-4.7 [id number] 06:09:00* Test Item Value Reference Range Comments MAGNESIUM (BEAKER) (test hvww=271) 2.3 mg/dL 1.6-2.6 BASIC METABOLIC [id number] 06:09:00* Test Item Value Reference Range Comments SODIUM (BEAKER) (test iprd=864) 137 meq/L 136-145 POTASSIUM (BEAKER) (test kikp=276) 4.3 meq/L 3.5-5.1 CHLORIDE (BEAKER) (test ruwa=026) 101 meq/L 98-107 CO2 (BEAKER) (test fxiu=359) 25 meq/L 22-29 BLOOD UREA NITROGEN (BEAKER) (test ydlz=975) 22 mg/dL 7-21 CREATININE (BEAKER) (test knqv=913) 0.94 mg/dL 0.57-1.25 GLUCOSE RANDOM (BEAKER) (test mkoh=377) 104 mg/dL 70-105 CALCIUM (BEAKER) (test tsxj=826) 8.7 mg/dL 8.4-10.2 EGFR (BEAKER) (test xjrx=1429) 81 mL/min/1.73 sq m ESTIMATED GFR IS NOT ACCURATE CREATININE CLEARANCE IN PREDICTING GLOMERULAR FILTRATION RATE. ESTIMATED GFR IS NOT APPLICABLE FOR DIALYSIS PATIENTS. TROPONIN [id number] 13:18:00* Test Item Value Reference Range Comments TROPONIN I (BEAKER) (test ghym=014) 0.58 ng/mL 0.00-0.03 Troponin I (TnI) levels must be interpreted [...] failure, acidosis, acute neurological disease, and persistent tachyarrhythmia.TROPONIN [id number] 06:29:00* Test Item Value Reference Range Comments TROPONIN I (BEAKER) (test slwg=240) 0.65 ng/mL 0.00-0.03 Troponin I (TnI) levels must be interpreted [...] failure, acidosis, acute neurological disease, and persistent tachyarrhythmia.[id number] 05:59:00* Test Item Value Reference Range Comments PHOSPHORUS (BEAKER) (test gcji=100) 4.1 mg/dL 2.3-4.7 [id number] 05:59:00* Test Item Value Reference Range Comments MAGNESIUM (BEAKER) (test afhj=820) 2.1 mg/dL 1.6-2.6 BASIC METABOLIC [id number] 05:59:00* Test Item Value Reference Range Comments SODIUM (BEAKER) (test qfii=890) 137 meq/L 136-145 POTASSIUM (BEAKER) (test fyoh=489) 3.9 meq/L 3.5-5.1 CHLORIDE (BEAKER) (test fktj=153) 100 meq/L 98-107 CO2 (BEAKER) (test axce=852) 23 meq/L 22-29 BLOOD UREA NITROGEN (BEAKER) (test urbr=898) 21 mg/dL 7-21 CREATININE (BEAKER) (test axox=013) 1.07 mg/dL 0.57-1.25 GLUCOSE RANDOM (BEAKER) (test wris=407) 127 mg/dL 70-105 CALCIUM (BEAKER) (test lsnl=402) 9.3 mg/dL 8.4-10.2 EGFR (BEAKER) (test ehln=3502) 70 mL/min/1.73 sq m ESTIMATED GFR IS NOT ACCURATE CREATININE CLEARANCE IN PREDICTING GLOMERULAR FILTRATION RATE. ESTIMATED GFR IS NOT APPLICABLE FOR DIALYSIS PATIENTS. CBC (HEMOGRAM ONLY)2017-10-12 05:46:00* Test Item Value Reference Range Comments WHITE BLOOD CELL COUNT (BEAKER) (test lfmf=686) 10.8 K/ L 3.5-10.5 RED BLOOD CELL COUNT (BEAKER) (test ypvr=142) 4.77 M/ L 4.63-6.08 HEMOGLOBIN (BEAKER) (test wenr=155) 13.7 GM/DL 13.7-17.5 HEMATOCRIT (BEAKER) (test ijjk=021) 42.9 % 40.1-51.0 MEAN CORPUSCULAR VOLUME (BEAKER) (test uoqp=684) 89.9 fL 79.0-92.2 MEAN CORPUSCULAR HEMOGLOBIN (BEAKER) (test gcfd=798) 28.7 pg 25.7-32.2 MEAN CORPUSCULAR HEMOGLOBIN CONC (BEAKER) (test nqpb=699) 31.9 GM/DL 32.3- 36.5 RED CELL DISTRIBUTION WIDTH (BEAKER) (test heep=564) 13.6 % 11.6-14.4 PLATELET COUNT (BEAKER) (test guvm=873) 281 K/CU MM 150-450 MEAN PLATELET VOLUME (BEAKER) (test libx=737) 10.9 fL 9.4-12.4 NUCLEATED RED BLOOD CELLS (BEAKER) (test nhxn=974) 0 /100 WBC 0-0 TROPONIN [id number] 23:59:00* Test Item Value Reference Range Comments TROPONIN I (BEAKER) (test iibd=040) 0.64 ng/mL 0.00-0.03 Troponin I (TnI) levels must be interpreted [...] failure, acidosis, acute neurological disease, and persistent tachyarrhythmia.RAD, CHEST, 1 VIEW, NON [id number] 18:15:00Reason for exam:->chest painShould this be performed at the bedside?-> YesFINAL REPORT Chest, one view HISTORY: Chest pain COMPARISON: 04/30/2015 DISCUSSION: Lungs are clear without focal consolidation. Cardiomediastinal silhouette is persistently enlarged but unchanged from prior examination. No acute osseous abnormality. Trace left pleural effusion. No pneumothorax. Visualized portions of the upper abdomen are unremarkable. IMPRESSION: Unchanged enlargement of the cardiomediastinal silhouette. Trace left pleural effusion. Signed: Kush Leon MDReport Verified Date/Time: 2017 18:15:43 Reading Location: [address] Body Reading Room ONIN [id number] 17:01:00* Test Item Value Reference Range Comments TROPONIN I (BEAKER) (test fvqs=043) 0.64 ng/mL 0.00-0.03 Troponin I (TnI) levels must be interpreted [...] failure, acidosis, acute neurological disease, and persistent tachyarrhythmia.B-TYPE NATRIURETIC FACTOR (BNP) 16:57:00* Test Item Value Reference Range Comments B-TYPE NATRIURETIC PEPTIDE (BEAKER) (test tqhn=396) 1212 pg/mL 0-100 [id number] 16:51:00* Test Item Value Reference Range Comments MAGNESIUM (BEAKER) (test pdwa=508) 2.1 mg/dL 1.6-2.6 COMPREHENSIVE METABOLIC [id number] 16:51:00* Test Item Value Reference Range Comments TOTAL PROTEIN (BEAKER) (test fjwl=079) 7.3 gm/dL 6.0-8.3 ALBUMIN (BEAKER) (test sfxd=0617) 3.9 g/dL 3.5-5.0 ALKALINE PHOSPHATASE (BEAKER) (test zqvz=761) 106 U/L 40-150 BILIRUBIN TOTAL (BEAKER) (test idsy=862) 1.2 mg/dL 0.2-1.2 SODIUM (BEAKER) (test soak=147) 135 meq/L 136-145 POTASSIUM (BEAKER) (test mrqh=724) 4.0 meq/L 3.5-5.1 CHLORIDE (BEAKER) (test krpt=031) 101 meq/L 98-107 CO2 (BEAKER) (test wunv=400) 22 meq/L 22-29 BLOOD UREA NITROGEN (BEAKER) (test ymdv=055) 19 mg/dL 7-21 CREATININE (BEAKER) (test rnih=630) 1.04 mg/dL 0.57-1.25 GLUCOSE RANDOM (BEAKER) (test xnqu=877) 116 mg/dL 70-105 CALCIUM (BEAKER) (test save=356) 9.6 mg/dL 8.4-10.2 AST (SGOT) (BEAKER) (test bunb=486) 58 U/L 5-34 ALT (SGPT) (BEAKER) (test eslo=729) 61 U/L 6-55 EGFR (BEAKER) (test exgy=2486) 72 mL/min/1.73 sq m ESTIMATED GFR IS NOT ACCURATE CREATININE CLEARANCE IN PREDICTING GLOMERULAR FILTRATION RATE. ESTIMATED GFR IS NOT APPLICABLE FOR DIALYSIS PATIENTS. [id number] 16:51:00* Test Item Value Reference Range Comments LIPASE (BEAKER) (test baje=544) 42 U/L 8-78 POCT-LACTIC ACID, [id number] 16:33:00* Test Item Value Reference Range Comments POC-LACTIC ACID, VENOUS (BEAKER) (test smnz=0560) 1.3 mmol/L 0.9-1.7 TESTED AT [facility] [address] [facility] [address] [id number] 16:31:00* Test Item Value Reference Range Comments PROTIME (BEAKER) (test caqd=269) 23.9 seconds 11.7-14.7 INR (BEAKER) (test trgi=453) 2.1 <=5.9 PARTIAL THROMBOPLASTIN TIME (BEAKER) (test wmhj=283) 40.0 seconds 22.5-36.0 RECOMMENDED COUMADIN/WARFARIN INR THERAPY RANGESSTANDARD DOSE: 2.0 - 3.0 Includes: PROPHYLAXIS for venous thrombosis, systemic embolization; TREATMENT for venous thrombosis and/or pulmonary embolus.HIGH RISK: Target INR is 2.5-3.5 for patients with mechanical heart valves.CBC W/PLT COUNT & AUTO [id number] 16:23:00* Test Item Value Reference Range Comments WHITE BLOOD CELL COUNT (BEAKER) (test cfrp=197) 11.1 K/ L 3.5-10.5 RED BLOOD CELL COUNT (BEAKER) (test scly=720) 4.82 M/ L 4.63-6.08 HEMOGLOBIN (BEAKER) (test bicn=493) 13.6 GM/DL 13.7-17.5 HEMATOCRIT (BEAKER) (test pbmm=564) 43.7 % 40.1-51.0 MEAN CORPUSCULAR VOLUME (BEAKER) (test paue=481) 90.7 fL 79.0-92.2 MEAN CORPUSCULAR HEMOGLOBIN (BEAKER) (test gfvh=909) 28.2 pg 25.7-32.2 MEAN CORPUSCULAR HEMOGLOBIN CONC (BEAKER) (test ejdh=514) 31.1 GM/DL 32.3- 36.5 RED CELL DISTRIBUTION WIDTH (BEAKER) (test iqdh=895) 13.7 % 11.6-14.4 PLATELET COUNT (BEAKER) (test hyvw=324) 273 K/CU MM 150-450 MEAN PLATELET VOLUME (BEAKER) (test dgbk=792) 10.7 fL 9.4-12.4 NUCLEATED RED BLOOD CELLS (BEAKER) (test azax=613) 0 /100 WBC 0-0 POCT-GLUCOSE [id number] 08:34:00* Test Item Value Reference Range Comments POC-GLUCOSE METER (BEAKER) (test wzta=1076) 102 mg/dL 70-110 TESTED AT [facility] [address] [facility] [address] [id number] 06:28:00* Test Item Value Reference Range Comments POTASSIUM (BEAKER) (test wouc=517) 4.1 meq/L 3.5-5.1 [id number] 06:28:00* Test Item Value Reference Range Comments MAGNESIUM (BEAKER) (test czon=842) 2.2 mg/dL 1.6-2.6 [id number] 06:28:00* Test Item Value Reference Range Comments BLOOD UREA NITROGEN (BEAKER) (test ezma=464) 22 mg/dL 7-21 [id number] 06:28:00* Test Item Value Reference Range Comments SODIUM (BEAKER) (test cjft=611) 137 meq/L 136-145 POTASSIUM (BEAKER) (test ofmi=573) 4.1 meq/L 3.5-5.1 CHLORIDE (BEAKER) (test hiht=092) 103 meq/L 98-107 CO2 (BEAKER) (test msgl=929) 24 meq/L 22-29 [id number] 06:28:00* Test Item Value Reference Range Comments CREATININE (BEAKER) (test ywlg=193) 0.94 mg/dL 0.57-1.25 EGFR (BEAKER) (test vlct=0463) 81 mL/min/1.73 sq m ESTIMATED GFR IS NOT ACCURATE CREATININE CLEARANCE IN PREDICTING GLOMERULAR FILTRATION RATE. ESTIMATED GFR IS NOT APPLICABLE FOR DIALYSIS PATIENTS. CBC (HEMOGRAM ONLY)2017-10-09 06:04:00* Test Item Value Reference Range Comments WHITE BLOOD CELL COUNT (BEAKER) (test miau=103) 11.8 K/ L 3.5-10.5 RED BLOOD CELL COUNT (BEAKER) (test edtz=746) 4.42 M/ L 4.63-6.08 HEMOGLOBIN (BEAKER) (test mvre=654) 12.6 GM/DL 13.7-17.5 HEMATOCRIT (BEAKER) (test xdyv=815) 39.8 % 40.1-51.0 MEAN CORPUSCULAR VOLUME (BEAKER) (test jauo=756) 90.0 fL 79.0-92.2 MEAN CORPUSCULAR HEMOGLOBIN (BEAKER) (test tilh=364) 28.5 pg 25.7-32.2 MEAN CORPUSCULAR HEMOGLOBIN CONC (BEAKER) (test ndtb=005) 31.7 GM/DL 32.3- 36.5 RED CELL DISTRIBUTION WIDTH (BEAKER) (test kbuj=044) 13.9 % 11.6-14.4 PLATELET COUNT (BEAKER) (test sqxz=611) 170 K/CU MM 150-450 MEAN PLATELET VOLUME (BEAKER) (test soef=097) 11.2 fL 9.4-12.4 NUCLEATED RED BLOOD CELLS (BEAKER) (test qlps=130) 0 /100 WBC 0-0 POCT-GLUCOSE [id number] 23:19:00* Test Item Value Reference Range Comments POC-GLUCOSE METER (BEAKER) (test xdaw=1032) 120 mg/dL 70-110 TESTED AT [address] [address] POCT-GLUCOSE [id number] 16:53:00* Test Item Value Reference Range Comments POC-GLUCOSE METER (BEAKER) (test tpfl=4592) 166 mg/dL 70-110 TESTED AT [address] [address] POCT-GLUCOSE [id number] 12:39:00* Test Item Value Reference Range Comments POC-GLUCOSE METER (BEAKER) (test pvaj=2942) 118 mg/dL 70-110 TESTED AT [address] [address] POCT-GLUCOSE [id number] 08:06:00* Test Item Value Reference Range Comments POC-GLUCOSE METER (BEAKER) (test vqsj=7576) 111 mg/dL 70-110 TESTED AT [address] [address] [id number] 06:53:00* Test Item Value Reference Range Comments POTASSIUM (BEAKER) (test llko=344) 4.3 meq/L 3.5-5.1 [id number] 06:53:00* Test Item Value Reference Range Comments MAGNESIUM (BEAKER) (test etwl=374) 2.2 mg/dL 1.6-2.6 [id number] 06:53:00* Test Item Value Reference Range Comments BLOOD UREA NITROGEN (BEAKER) (test uery=747) 20 mg/dL 7-21 [id number] 06:53:00* Test Item Value Reference Range Comments SODIUM (BEAKER) (test jhbq=639) 136 meq/L 136-145 POTASSIUM (BEAKER) (test kzgy=775) 4.3 meq/L 3.5-5.1 CHLORIDE (BEAKER) (test pohm=229) 102 meq/L 98-107 CO2 (BEAKER) (test zway=882) 25 meq/L 22-29 [id number] 06:53:00* Test Item Value Reference Range Comments CREATININE (BEAKER) (test ezzi=806) 1.10 mg/dL 0.57-1.25 EGFR (BEAKER) (test slex=1207) 68 mL/min/1.73 sq m ESTIMATED GFR IS NOT ACCURATE CREATININE CLEARANCE IN PREDICTING GLOMERULAR FILTRATION RATE. ESTIMATED GFR IS NOT APPLICABLE FOR DIALYSIS PATIENTS. CBC (HEMOGRAM ONLY)2017-10-08 06:08:00* Test Item Value Reference Range Comments WHITE BLOOD CELL COUNT (BEAKER) (test dagi=636) 13.8 K/ L 3.5-10.5 RED BLOOD CELL COUNT (BEAKER) (test zumx=582) 4.78 M/ L 4.63-6.08 HEMOGLOBIN (BEAKER) (test vlcp=050) 13.9 GM/DL 13.7-17.5 HEMATOCRIT (BEAKER) (test exxc=102) 44.4 % 40.1-51.0 MEAN CORPUSCULAR VOLUME (BEAKER) (test cuqz=453) 92.9 fL 79.0-92.2 MEAN CORPUSCULAR HEMOGLOBIN (BEAKER) (test bjel=468) 29.1 pg 25.7-32.2 MEAN CORPUSCULAR HEMOGLOBIN CONC (BEAKER) (test mdef=881) 31.3 GM/DL 32.3- 36.5 RED CELL DISTRIBUTION WIDTH (BEAKER) (test liwf=287) 14.0 % 11.6-14.4 PLATELET COUNT (BEAKER) (test jrgx=898) 195 K/CU MM 150-450 MEAN PLATELET VOLUME (BEAKER) (test ktje=005) 11.1 fL 9.4-12.4 NUCLEATED RED BLOOD CELLS (BEAKER) (test mnky=607) 0 /100 WBC 0-0 POCT-GLUCOSE [id number] 00:25:00* Test Item Value Reference Range Comments POC-GLUCOSE METER (BEAKER) (test kfhi=9332) 108 mg/dL 70-110 TESTED AT [facility] [address] [facility] [address] [id number] 05:11:00* Test Item Value Reference Range Comments POTASSIUM (BEAKER) (test aehj=267) 4.2 meq/L 3.5-5.1 [id number] 05:11:00* Test Item Value Reference Range Comments MAGNESIUM (BEAKER) (test kubk=020) 2.4 mg/dL 1.6-2.6 [id number] 05:11:00* Test Item Value Reference Range Comments BLOOD UREA NITROGEN (BEAKER) (test hgmg=875) 17 mg/dL 7-21 [id number] 05:11:00* Test Item Value Reference Range Comments SODIUM (BEAKER) (test svln=736) 138 meq/L 136-145 POTASSIUM (BEAKER) (test jdih=724) 4.2 meq/L 3.5-5.1 CHLORIDE (BEAKER) (test yrwq=924) 106 meq/L 98-107 CO2 (BEAKER) (test cqat=481) 23 meq/L 22-29 [id number] 05:11:00* Test Item Value Reference Range Comments CREATININE (BEAKER) (test pfmu=415) 0.96 mg/dL 0.57-1.25 EGFR (BEAKER) (test mpdq=8666) 79 mL/min/1.73 sq m ESTIMATED GFR IS NOT ACCURATE CREATININE CLEARANCE IN PREDICTING GLOMERULAR FILTRATION RATE. ESTIMATED GFR IS NOT APPLICABLE FOR DIALYSIS PATIENTS. CBC (HEMOGRAM ONLY)2017-10-07 04:41:00* Test Item Value Reference Range Comments WHITE BLOOD CELL COUNT (BEAKER) (test bylj=408) 10.7 K/ L 3.5-10.5 RED BLOOD CELL COUNT (BEAKER) (test rzud=840) 4.84 M/ L 4.63-6.08 HEMOGLOBIN (BEAKER) (test dqzy=750) 13.9 GM/DL 13.7-17.5 HEMATOCRIT (BEAKER) (test hack=464) 44.0 % 40.1-51.0 MEAN CORPUSCULAR VOLUME (BEAKER) (test obzx=249) 90.9 fL 79.0-92.2 MEAN CORPUSCULAR HEMOGLOBIN (BEAKER) (test uihf=427) 28.7 pg 25.7-32.2 MEAN CORPUSCULAR HEMOGLOBIN CONC (BEAKER) (test gcon=117) 31.6 GM/DL 32.3- 36.5 RED CELL DISTRIBUTION WIDTH (BEAKER) (test udcj=917) 14.1 % 11.6-14.4 PLATELET COUNT (BEAKER) (test viqg=704) 191 K/CU MM 150-450 MEAN PLATELET VOLUME (BEAKER) (test mrlc=782) 10.7 fL 9.4-12.4 NUCLEATED RED BLOOD CELLS (BEAKER) (test ivqf=166) 0 /100 WBC 0-0 [id number] 11:48:00* Test Item Value Reference Range Comments POTASSIUM (BEAKER) (test ioux=935) 4.1 meq/L 3.5-5.1 [id number] 11:48:00* Test Item Value Reference Range Comments MAGNESIUM (BEAKER) (test gwpp=580) 2.2 mg/dL 1.6-2.6 [id number] 10:56:00* Test Item Value Reference Range Comments ACTIVATED CLOTTING TIME (BEAKER) (test oemf=759) 136 sec TESTED AT [place] [address] [id number] 09:56:00* Test Item Value Reference Range Comments ACTIVATED CLOTTING TIME (BEAKER) (test lhra=781) 241 sec TESTED AT [place] [address] [id number] 09:35:00* Test Item Value Reference Range Comments ACTIVATED CLOTTING TIME (BEAKER) (test skqj=486) 252 sec TESTED AT [place] [address] BASIC METABOLIC [id number] 06:17:00* Test Item Value Reference Range Comments SODIUM (BEAKER) (test rrxe=654) 141 meq/L 136-145 POTASSIUM (BEAKER) (test pazy=517) 4.0 meq/L 3.5-5.1 CHLORIDE (BEAKER) (test tlgj=488) 104 meq/L 98-107 CO2 (BEAKER) (test lzpq=040) 26 meq/L 22-29 BLOOD UREA NITROGEN (BEAKER) (test iegn=468) 13 mg/dL 7-21 CREATININE (BEAKER) (test cfyc=852) 0.98 mg/dL 0.57-1.25 GLUCOSE RANDOM (BEAKER) (test viit=039) 129 mg/dL 70-105 CALCIUM (BEAKER) (test cien=291) 9.5 mg/dL 8.4-10.2 EGFR (BEAKER) (test lnqf=4872) 78 mL/min/1.73 sq m ESTIMATED GFR IS NOT ACCURATE CREATININE CLEARANCE IN PREDICTING GLOMERULAR FILTRATION RATE. ESTIMATED GFR IS NOT APPLICABLE FOR DIALYSIS PATIENTS. CBC W/PLT COUNT & AUTO [id number] 06:03:00* Test Item Value Reference Range Comments WHITE BLOOD CELL COUNT (BEAKER) (test ocax=534) 8.9 K/ L 3.5-10.5 RED BLOOD CELL COUNT (BEAKER) (test rlri=020) 5.14 M/ L 4.63-6.08 HEMOGLOBIN (BEAKER) (test etdf=220) 14.8 GM/DL 13.7-17.5 HEMATOCRIT (BEAKER) (test xgzx=399) 46.5 % 40.1-51.0 MEAN CORPUSCULAR VOLUME (BEAKER) (test rpyk=224) 90.5 fL 79.0-92.2 MEAN CORPUSCULAR HEMOGLOBIN (BEAKER) (test cldt=195) 28.8 pg 25.7-32.2 MEAN CORPUSCULAR HEMOGLOBIN CONC (BEAKER) (test xqcd=676) 31.8 GM/DL 32.3- 36.5 RED CELL DISTRIBUTION WIDTH (BEAKER) (test yfnt=281) 13.9 % 11.6-14.4 PLATELET COUNT (BEAKER) (test bena=669) 212 K/CU MM 150-450 MEAN PLATELET VOLUME (BEAKER) (test foid=549) 10.0 fL 9.4-12.4 NUCLEATED RED BLOOD CELLS (BEAKER) (test prco=667) 0 /100 WBC 0-0 NEUTROPHILS RELATIVE PERCENT (BEAKER) (test lkcm=091) 76 % LYMPHOCYTES RELATIVE PERCENT (BEAKER) (test oaih=392) 13 % MONOCYTES RELATIVE PERCENT (BEAKER) (test nzxz=723) 9 % EOSINOPHILS RELATIVE PERCENT (BEAKER) (test fdrj=358) 1 % BASOPHILS RELATIVE PERCENT (BEAKER) (test opsc=791) 1 % NEUTROPHILS ABSOLUTE COUNT (BEAKER) (test joxl=994) 6.78 K/ L 1.78-5.38 LYMPHOCYTES ABSOLUTE COUNT (BEAKER) (test snyu=542) 1.12 K/ L 1.32-3.57 MONOCYTES ABSOLUTE COUNT (BEAKER) (test mzar=656) 0.84 K/ L 0.30-0.82 EOSINOPHILS ABSOLUTE COUNT (BEAKER) (test mxxn=641) 0.10 K/ L 0.04-0.54 BASOPHILS ABSOLUTE COUNT (BEAKER) (test venm=958) 0.05 K/ L 0.01-0.08 IMMATURE GRANULOCYTES-RELATIVE PERCENT (BEAKER) (test tvmo=1090) 0 % 0-1 CT, HEART, [id number] 15:11:00Reason for Exam:->Z00.6, I48.2Addendum BeginsREPORT STATUS:A ADDENDUM: Study reviewed by radiology. Agree with the nonvascular findings as described below. Signed: Pj Bennett MDReport Verified Date/Time: 09/21/2017 15:11:13 Reading Location: [facility] P048 Angio Body Reading RoomAddendum EndsFINAL REPORT CT angiography of the pulmonary veins, [...] by the interpreting physician using an independent ( [employer]) workstation. Please refer to the contrast sheet [...] vein Major axis Minor axis Cross-sectional area Right upper 26 mm 23 mm 4.1 [id number] lower 25 mm 23 mm 4.3 [id number] upper 23 mm 11 mm 2.0 [id number] lower 22 mm 10 mm 1.6 cm2 NON-VASCULAR : In the noncontrast images, the visualised thyroid [...] wing. See snapshot for details. The core lab/clinical research specialist will provide measurement for the left [...] dictated regarding the non-vascular findings by the Television Reporter Radiologist. Signed: Abdulkadir Wilkins MDReport Verified Date/Time: 09/21/2017 09:49:51 Reading Location: [place] [address] Cardiology MRI AND [id number] 07:54:00* Test Item Value Reference Range Comments BLOOD UREA NITROGEN ([facility]) (test lpzy=000) 21 mg/dL 7-21 CREATININE ([facility]) (test eaxl=095) 1.07 mg/dL 0.57-1.25 EGFR ([facility]) (test ydxz=5776) 70 mL/min/1.73 sq m ESTIMATED GFR IS NOT ACCURATE CREATININE CLEARANCE IN PREDICTING GLOMERULAR FILTRATION RATE. ESTIMATED GFR IS NOT APPLICABLE FOR DIALYSIS PATIENTS.
== END 2017-10-23 13:05 | disposition home or self-care (01) ==
LOC: FSED 11:59
DX: R30.0 Dysuria (principal); N30.91 Cystitis, unspecified with hematuria; I50.22 Chronic systolic (congestive) heart failure; I50.1 Left ventricular failure, unspecified
CPT/HCPCS: 80053; 81003; 82553; 83880; 84484; 85025; 85610; 99284

== ENCOUNTER 2018-11-24 15:15 | Emergency (ER) | payer OTHER ==
[~2018-11-24] VITALS: Ht 177.8 cm; Wt 101.6 kg
--- OUTSIDE RECORDS SUMMARY | 2018-11-24 15:19 | XMS REPORT | Clinical Summary ---
Author Author GUS [email or web address] [facility] Address Unknown Phone Unavailable Care Team Providers Care Hospice Case Manager Name Role Phone Seun Jang PCP Allergies Comments Active Allergy Reactions Severity Noted Date Joint pain Joint pain Could not walk Atorvastatin Other (See High 04/30/2015 Comments) Medications End Date Status Medication Sig Dispensed Refills Start Date Active rivaroxaban (XARELTO) 20 Take 1 tablet 90 tablet 3 mg Tab tablet (20 mg total) 5 by mouth daily with dinner. Active torsemide (DEMADEX) 20 MG Take 20 mg by 0 tablet mouth daily. Active ezetimibe (ZETIA) 10 mg Take 10 mg by 0 tablet mouth daily. Active spironolactone Take 25 mg by 0 (ALDACTONE) 25 MG tablet mouth daily. Active colchicine (COLCRYS) 0.6 Take 0.5 60 tablet 0 10/08/201 mg tablet tablets (0.3 8 mg total) by mouth 2 (two) times daily Takes 1/2 tablet twice a day . Active amLODIPine (NORVASC) 10 Take 10 mg by 0 MG tablet mouth daily. Active cholecalciferol, vitamin Take 1,000 0 D3, 1,000 unit capsule Units by mouth daily. Active coenzyme Q10 200 mg Take 200 mg 0 capsule by mouth daily. Active psyllium (METAMUCIL Take 1 packet 0 SUGAR-FREE) 3.4 gram by mouth packet daily. Active amiodarone (PACERONE) 200 Take 200 mg 0 MG tablet by mouth daily. Active metoprolol (LOPRESSOR) Take 1 tablet 90 tablet 3 100 MG tablet (100 mg 8 total) by mouth daily. 12/29/2017 Discontinued aspirin 81 MG EC tablet Take 81 mg by 0 mouth daily. 10/08/2018 cloNIDine HCl (CATAPRES) Take 1 tablet 60 tablet 3 0.2 MG tablet (0.2 mg 8 total) by mouth 2 (two) times daily. 12/29/2017 Discontinued dilTIAZem (CARDIZEM CD) Take 1 90 capsule 3 180 MG 24 hr capsule capsule (180 8 mg total) by mouth daily. 12/30/2017 Discontinued metoprolol 75 mg Tab Take 150 mg 90 tablet 3 by mouth 2 8 (two) times daily. 12/30/2017 Discontinued amiodarone (PACERONE) 400 Take 1 tablet 90 tablet 3 MG tablet (400 mg 8 total) by mouth 2 (two) times daily. 12/30/2017 Discontinued metoprolol (LOPRESSOR) Take 100 mg 0 100 MG tablet by mouth daily. Active Problems Problem Noted Date Atrial fibrillation with RVR 10/11/2017 A-fib 10/06/2017 Alcoholism 07/02/2015 Volume overload 07/02/2015 Acute systolic congestive heart failure 07/02/2015 HTN (hypertension) 06/05/2015 Atrial fibrillation with rapid ventricular response 04/30/2015 Encounters Care Team Description Date Type Specialty Ruben Hassan MD Research study patient (Primary Dx); Chronic atrial fibrillation (HCC) 11/22/2018 Outside Orders Central Scheduling Ruben Hassan MD 12/30/2017 Documentation Research Ruben Hassan MD EPS & PULMONARY VEIN (PVI) W/ CARTO & GENERAL ANESTHESIA 12/29/2017 Surgery Sekou Nguyễn AA 12/29/2017 Anesthesia Event Ruebn Hassan MD Acute systolic congestive heart failure (HCC) 12/29/2017 Hospital Cardiology - Encounter 12/30/2017 12/29/2017 Orders Only General Internal Medicine Chilo Brown MD Mitral valve insufficiency, unspecified etiology 12/09/2017 Hospital Cardiology Encounter Chilo Brown MD Mitral valve insufficiency, unspecified etiology (Primary Dx) 12/07/2017 Outside Orders Central Scheduling Ruben Hassan MD 12/07/2017 Outside Orders Central Scheduling after 11/23/2017 Family History Medical History Relation Name Comments Heart attack Mother Hypertension Mother Relation Name Status Comments Father Mother Social History Date Tobacco Use Types Packs/Day Years Used Former Smoker 1.5 40 Smokeless Tobacco: Never Used Comments: quit in 2011 Alcohol Use Drinks/Week oz/Week Comments Yes 4-5 times a week Sex Assigned at Date Recorded Not on file Industry Job Start Date Occupation Not on file Not on file Not on file Travel End Travel History Travel Start No recent travel history available. Last Filed Vital Signs Time Taken Vital Sign Reading 12/30/2017 11:40 AM CDT Blood Pressure 152/83 12/30/2017 11:40 AM CDT Pulse 52 12/30/2017 11:40 AM CDT Temperature 36.6 C (97.8 F) 12/30/2017 11:40 AM CDT Respiratory Rate 20 12/30/2017 11:40 AM CDT Oxygen Saturation 95% - Inhaled Oxygen - Concentration 12/30/2017 8:00 AM CDT Weight 93 kg (205 lb) 12/29/2017 5:50 AM CDT Height 177.8 cm (5' 10") 12/30/2017 8:00 AM CDT Body Mass Index 29.41 Plan of Treatment Care Team Description Date Type Specialty Ruben Hassan MD [address] [place] [address] [phone] 11/29/2018 Appointment Cardiology Implants Device Identifier Shelf Expiration Date Model / Serial / Lot Implanted Type Area Manufactur er 05/19/2019 90-09 / / [id number] Lariat Cardiovasc N/A: Heart SENTREHEAR Implanted: Qty: 1 on 10/06/2017 by Ruben Mejias MD Procedures Comments Procedure Name Priority Date/Time Associated Diagnosis RHYTHM STRIP - SCAN 03/30/2018 2:31 PM RUBBER LINER RHYTHM STRIP - SCAN 12/31/2017 10:01 AM CDT CARDIAC CATH REPORT - 12/31/2017 SCAN 10:01 AM CDT TRANSFUSION SERVICE 12/30/2017 REPORT - SCAN 6:01 PM CDT ELECTROLYTE PANEL Routine 12/30/2017 5:29 AM CDT BUN Routine 12/30/2017 5:29 AM CDT CREATININE Routine 12/30/2017 5:29 AM CDT CBC (HEMOGRAM ONLY) Routine 12/30/2017 5:29 AM CDT ECG 12-LEAD Routine 12/30/2017 5:24 AM CDT Procedure Note - Interface, External Ris In - 12/30/2017 5:49 AM CDT Ventricula r Rate 63 BPM Atrial Rate 63 BPM P-R Interval 202 ms QRS Duration 94 ms Q-T Interval 474 ms QTC Calculatio n(Bazett) 485 ms P [place] 69 degrees R [place] 62 degrees T [place] 69 degrees Normal sinus rhythm Prolonged QT Abnormal ECG When compared with ECG of 8 05:24, No significan t change was found ECG 12-LEAD Routine 12/30/2017 5:24 AM CDT ECG 12-LEAD Routine 12/30/2017 5:24 AM CDT Procedure Note - Interface, External Ris In - 12/30/2017 5:48 AM CDT Ventricula r Rate 63 BPM Atrial Rate 63 BPM P-R Interval 200 ms QRS Duration 96 ms Q-T Interval 470 ms QTC Calculatio n(Bazett) 480 ms P [place] 69 degrees R [place] 61 degrees T [place] 69 degrees Normal sinus rhythm Nonspecifi c ST and T wave abnormalit y Prolonged QT Abnormal ECG When compared with ECG of 8 12:51, Nonspecifi c T wave abnormalit y now evident in Lateral leads ECG 12-LEAD Routine 12/30/2017 5:24 AM CDT ECG 12-LEAD Routine 12/29/2017 12:51 PM CDT Procedure Note - Interface, External Ris In - 12/29/2017 1:57 PM CDT Ventricula r Rate 57 BPM Atrial Rate 57 BPM P-R Interval 208 ms QRS Duration 100 ms Q-T Interval 502 ms QTC Calculatio n(Bazett) 488 ms P [place] 71 degrees R [place] 85 degrees T [place] 57 degrees Sinus bradycardi a Moderate voltage criteria for LVH, may be normal variant Nonspecifi c ST abnormalit y Prolonged QT Abnormal ECG When compared with ECG of 8 06:26, No significan t change was found ECG 12-LEAD Routine 12/29/2017 12:51 PM CDT POCT-ACT Routine 12/29/2017 12:39 PM CDT POCT-ACT Routine 12/29/2017 11:10 AM CDT POCT-ACT Routine 12/29/2017 10:42 AM CDT POCT-ACT Routine 12/29/2017 10:11 AM CDT POCT-ACT Routine 12/29/2017 9:55 AM CDT POCT-ACT Routine 12/29/2017 9:42 AM CDT EPS & PULMONARY VEIN 12/29/2017 Atrial flutter, (PVI) W/ CARTO & GENERAL 7:30 AM CDT unspecified type (HCC) ANESTHESIA Case Notes (1) POP6 Amaze (CV ANES) ECG 12-LEAD Routine 12/29/2017 6:26 AM CDT TYPE AND SCREEN, Routine 12/29/2017 AUTOMATED 6:11 AM CDT BASIC METABOLIC PANEL (7) STAT 12/29/2017 6:11 AM CDT ECHOCARDIOGRAM REPORT - 12/10/2017 SCAN 10:21 AM CDT TRANSESOPHAGEAL ECHO Routine 12/09/2017 10:07 AM CDT CONT WAVE PULSED DOPPLER Routine 12/09/2017 9:42 AM CDT COLOR-FLOW MAPPING Routine 12/09/2017 9:42 AM CDT COLOR-FLOW MAPPING Routine 12/09/2017 Mitral valve 8:57 AM CDT insufficiency, unspecified etiology CONT WAVE PULSED DOPPLER Routine 12/09/2017 Mitral valve 8:57 AM CDT insufficiency, unspecified etiology TRANSESOPHAGEAL ECHO Routine 12/09/2017 Mitral valve 8:57 AM CDT insufficiency, unspecified etiology after 11/23/2017 Results * RHYTHM STRIP - SCAN (03/30/2018 2:31 PM RUBBER LINER) Only the most recent of 2 results within the time period is included. Narrative Performed At * CARDIAC CATH REPORT - SCAN (12/31/2017 10:01 AM CDT) Narrative Performed At * TRANSFUSION SERVICE REPORT - SCAN (12/30/2017 6:01 PM CDT) Narrative Performed At * CBC (Hemogram only) (12/30/2017 5:29 AM CDT) WBC 12.1 (H) 3.5 - 10.5 K/L [facility] RBC 5.02 4.63 - 6.08 M/L [facility] Hemoglobin 14.1 13.7 - 17.5 GM/DL [facility] Hematocrit 43.4 40.1 - 51.0 % [facility] MCV 86.5 79.0 - 92.2 fL [facility] MCH 28.1 25.7 - 32.2 pg [facility] MCHC 32.5 32.3 - 36.5 GM/DL [facility] RDW 14.0 11.6 - 14.4 % [facility] Platelets 231 150 - 450 K/CU MM [facility] MPV 11.7 9.4 - 12.4 fL [facility] nRBC 0 0 - 0 /100 WBC [facility] Specimen Blood Performing Organization Address City/[facility]/Zipcode Phone Number [facility] [address] [place] [address] [facility] * BUN (12/30/2017 5:29 AM CDT) BUN 17 7 - 21 mg/dL [facility] Specimen Blood Performing Organization Address City/State/Zipcode Phone Number [address] [address] [facility] * Creatinine (12/30/2017 5:29 AM CDT) Creatinine 1.32 (H) 0.57 - 1.25 mg/dL [facility] EGFR 55Comment: ESTIMATED GFR IS mL/min/1.73 sq m [facility] NOT ACCURATE CREATININE [facility] CLEARANCE IN PREDICTING GLOMERULAR FILTRATION RATE. ESTIMATED GFR IS NOT APPLICABLE FOR DIALYSIS PATIENTS. Specimen Blood Performing Organization Address City/State/Zipcode Phone Number [facility] [address], [place] [id number] [facility] * Electrolytes (12/30/2017 5:29 AM CDT) Sodium 139 136 - 145 meq/L [facility] Potassium 4.4 3.5 - 5.1 meq/L [facility] Chloride 104 98 - 107 meq/L [facility] CO2 26 22 - 29 meq/L [facility] Specimen Blood Performing Organization Address [facility] Phone Number [facility] [address] [place] [address] [facility] * ECG 12 lead (12/30/2017 5:24 AM CDT) Only the most recent of 4 results within the time period is included. Specimen Narrative Performed At Ventricular Rate 63 BPM GE MUSE Atrial Rate 63 BPM P-R Interval 202 ms QRS Duration 94 ms Q-T Interval 440 ms QTC Calculation(Bazett) 451 ms P [place] 69 degrees R [place] 62 degrees T [place] 69 degrees Normal sinus rhythm Prolonged QT Abnormal ECG When compared with ECG of 30-DEC-2017 05:24, No significant change was found Confirmed by Jesús SANCHEZ, WILL ([id number]) on 12/30/2017 8:21:08 AM Procedure Note Interface, External Ris In - 12/30/2017 8:21 AM CDT Ventricular Rate 63 BPM Atrial Rate 63 BPM P-R Interval 202 ms QRS Duration 94 ms Q-T Interval 440 ms QTC Calculation(Bazett) 451 ms P [place] 69 degrees R [place] 62 degrees T [place] 69 degrees Normal sinus rhythm Prolonged QT Abnormal ECG When compared with ECG of 30-DEC-2017 05:24, No significant change was found Confirmed by Jesús SANCHEZ BASANT ([id number]) on 12/30/2017 8:21:08 AM Performing Organization Address City/[facility] Phone Number GE MUSE * POC ACTIVATED CLOTTING TIME (12/29/2017 12:39 PM CDT) Only the most recent of 6 results within the time period is included. Activated Clotting Time 125Comment: TESTED AT [facility] sec [address] Specimen Blood Performing Organization Address City/[facility]/Zipcode Phone Number [address] [address] [facility] * Type and screen, automated (12/29/2017 6:11 AM CDT) ABO/RH AUTOMATED (BEAKER) B POSITIVE [facility] Ab Scrn NEGATIVE [facility] Specimen Blood Performing Organization Address [facility] [place] [address] [facility] * Basic metabolic panel (12/29/2017 6:11 AM CDT) Sodium 139 136 - 145 meq/L [facility] Potassium 4.2 3.5 - 5.1 meq/L [facility] Chloride 102 98 - 107 meq/L [facility] CO2 29 22 - 29 meq/L [facility] BUN 16 7 - 21 mg/dL [facility] Creatinine 1.35 (H) 0.57 - 1.25 mg/dL [facility] Glucose 115 (H) 70 - 105 mg/dL [facility] Calcium 9.8 8.4 - 10.2 mg/dL [facility] EGFR 54Comment: ESTIMATED GFR IS mL/min/1.73 sq m [facility] NOT ACCURATE CREATININE [facility] CLEARANCE IN PREDICTING GLOMERULAR FILTRATION RATE. ESTIMATED GFR IS NOT APPLICABLE FOR DIALYSIS PATIENTS. Specimen Blood Performing Organization Address City/[facility]/Zipcode Phone Number [address] [address] [facility] * ECHOCARDIOGRAM REPORT - SCAN (12/10/2017 10:21 AM CDT) Narrative Performed At * Transesophageal echo (12/09/2017 10:07 AM CDT) Ejection Fraction [facility]CHO [facility] Specimen Narrative Performed At Transesophageal Echocardiography Report (JULIOCESAR) [facility] Demographics [facility] Patient Name IWONA CHONG Date of Study 12/09/2017 IVÁN [id number] GenderMale Visit Number [id number] RaceCaucasian [id number] Number OP Number Date of Birth1955 Referring Physician Stephanie Cronin Age62 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 Clinical History CHF,A-FIB,HTN,JACK,CAD,CANCER,STROKE,COPD,HLD,THYROID DISEASE Height: 70 inches Weight: 103.87 kg (229 lbs) BSA: 2.21 m^2 BMI: 32.86 kg/m^2 HR: 51 bpm BP: 165/81 mmHg Procedure Informed Consent JULIOCESAR procedure notes Moderate sedation by performing MD using 6 mg IV versed and 100 mcg IV fentanyl. . Summary Normal overall left ventricular systolic function. LA is enlarged but severity assessment is unreliable due to known JULIOCESAR sector size limitation. LA appendage is consistent with Lariat procedure. There is no visualized leak. There is mild prolapse of the A2 segment associated with moderate MR at the A2/P1 junction. Estimated peak systolic PA pressure is 35-40 mmHg + RA pressure. Signature Findings LeftNormal left ventricular chamber size. Normal wall thickness. Ventricle Normal overall left ventricular systolic function. No apparent segmental wall motion abnormalities. Left Atrium LA is enlarged but severity assessment is unreliable due to known JULIOCESAR sector size limitation. LA appendage is consistent with Lariat procedure. There is no visualized leak. Right Normal right ventricle structure and function. Ventricle Right AtriumRA cavity size is enlarged but severity assessment is unreliable . Atrial Septum IV saline contrast with delayed imaging is suggestive of intra pulmonic shunting. Aortic ValveNormal AoV structure and function. Mitral ValveThere is mild prolapse of the A2 segment associated with moderate MR at the A2/P1 junction. Tricuspid Moderate tricuspid regurgitation. Valve Estimated peak systolic PA pressure is 35-40 mmHg + RA pressure. PulmonicNormal pulmonic valve structure and function. Valve Aorta Aortic root size (SInus of Valsalva diameter) is normal . Grade 3 plaque (atheroma < 5mm) . Pericardium No evidence of pericardial effusion. Chambers/Structures Left Ventricle LVOT Diameter: 2.09 cm Aorta Ao Root S of Maria Esther.: 3.31 cm Doppler/Quantitative Measurements Mitral Valve PISA Radius: 0.76 cm MR Velocity: 6.36 m/s MR VTI: 242.39 cm MV EROA (PISA): 3.63 cm^2 MV Kyle. 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 Clinical History CHF,A-FIB,HTN,JACK,CAD,CANCER,STROKE,COPD,HLD,THYROID DISEASE Height: 70 inches Weight: 103.87 kg (229 lbs) BSA: 2.21 m^2 BMI: 32.86 kg/m^2 HR: 51 bpm BP: 165/81 mmHg Procedure Informed Consent JULIOCESAR procedure notes Moderate sedation by performing MD using 6 mg IV versed and 100 mcg IV fentanyl. . Summary Normal overall left ventricular systolic function. LA is enlarged but severity assessment is unreliable due to known JULIOCESAR sector size limitation. LA appendage is consistent with Lariat procedure. There is no visualized leak. There is mild prolapse of the A2 segment associated with moderate MR at the A2/P1 junction. Estimated peak systolic PA pressure is 35-40 mmHg + RA pressure. Signature Findings Left Normal left ventricular chamber size. Normal wall thickness. Ventricle Normal overall left ventricular systolic function. No apparent segmental wall motion abnormalities. Left Atrium LA is enlarged but severity assessment is unreliable due to known JULIOCESAR sector size limitation. LA appendage is consistent with Lariat procedure. There is no visualized leak. Right Normal right ventricle structure and function. Ventricle Right Atrium RA cavity size is enlarged but severity assessment is unreliable . Atrial Septum IV saline contrast with delayed imaging is suggestive of intra pulmonic shunting. Aortic Valve Normal AoV structure and function. Mitral Valve There is mild prolapse of the A2 segment associated with moderate MR at the A2/P1 junction. Tricuspid Moderate tricuspid regurgitation. Valve Estimated peak systolic PA pressure is 35-40 mmHg + RA pressure. Pulmonic Normal pulmonic valve structure and function. Valve Aorta Aortic root size (SInus of Valsalva diameter) is normal . Grade 3 plaque (atheroma < 5mm) . Pericardium No evidence of pericardial effusion. Chambers/Structures Left Ventricle LVOT Diameter: 2.09 cm Aorta Ao Root S of Maria Esther.: 3.31 cm Doppler/Quantitative Measurements Mitral Valve PISA Radius: 0.76 cm MR Velocity: 6.36 m/s MR VTI: 242.39 cm MV EROA (PISA): 3.63 cm^2 MV Kyle. Peak: LVOT LVOT Diameter: 2.09 cm LVOT Area: 3.43 cm^2 Tricuspid Valve TR Velocity: 3.08 m/s TR Gradient: 37.97 mmHg Performing Organization Address City/State/Zipcode Phone Number [facility] after 11/23/2017 Insurance Payer Benefit Subscriber ID Type Phone Address Plan / Group [employer] - [employer] CARE AET[employer] HMO xxxxxxxxxx HMO/POS POS QPOS Advance Directives Patient has advance care planning documents, and code status on file. For more i nformation, please contact: [facility] [address] [place] [phone] Date Inactivated Comments Code Status Date Activated 12/30/2017 7:00 PM Full Code 12/29/2017 5:55 AM This code status was determined by: Patient 12/09/2017 12:04 PM Full Code 12/09/2017 9:42 AM This code status was determined by: Patient 11/12/2017 4:24 AM Full Code 11/11/2017 9:32 AM This code status was determined by: Patient 10/17/2017 12:26 PM Full Code 10/11/2017 6:15 PM This code status was determined by: Patient 10/09/2017 2:49 PM Full Code 10/06/2017 6:42 PM This code status was determined by: Patient
--- OUTSIDE RECORDS SUMMARY | 2018-11-24 15:20 | XMS REPORT | Continuity of Care Document ---
Author Author [employer] Organization [employer] Address Unknown Phone Unavailable Care Team Providers Care Flyer Maker Name Role Phone DineGasm Information [facility] [place] Unavailable Unavailable Problems Problem Status Onset Date Classification Date Reported Comments Source BACK Active 05/17/2018 [facility] Cervicalgia 05/06/2018 11/17/2018 SHAWNA Greer,Seun Jang N64.4 - MASTODYNIA Active 02/05/2015 SHAWNA Greer RLS Active Diagnosis 04/23/2018 Seun Jang Acute bilateral low back pain without sciatica Active Diagnosis 04/23/2018 Seun Jang Thoracic spine pain Active Diagnosis 04/23/2018 Seun Jang Spasm of muscle Active Diagnosis 04/23/2018 Seun Jang Other specified disorders of breast Active Problem 04/23/2018 Seun Jang Mastodynia Active Problem 04/23/2018 Seun Jang Shortness of breath Active Problem 04/23/2018 Seun Jang Impotence of organic origin Active Problem 04/23/2018 Seun Jang Atrial fibrillation Active Problem 04/23/2018 Seun Jang Other and unspecified hyperlipidemia Active Problem 04/23/2018 Seun Jang Other and unspecified hyperlipidemia Active Problem 04/23/2018 Seun Jang Acute bronchitis due to other specified organisms Active Problem 04/23/2018 Seun Jang Benign hypertensive heart disease without congestive heart failure Active Problem 04/23/2018 Seun Jang Candidiasis of skin and nails Active Problem 04/23/2018 Seun Jang Neoplasm of uncertain behavior of skin Active Problem 04/23/2018 Seun Jang Hyperplastic colonic polyp, unspecified part of colon Active Problem 04/23/2018 Seun Jang Gastroesophageal reflux disease without esophagitis Active Problem 04/23/2018 Seun Jang Breast pain in male Active Problem 04/23/2018 Seun Jang Fullness of breast Active Problem 04/23/2018 Seun Jang Vitamin D deficiency Active Problem 04/23/2018 Seun Jang BPH w/o urinary obs/LUTS Active Problem 04/23/2018 Seun Jang Hx of tobacco use, presenting hazards to health Active Problem 04/23/2018 Seun Jang Chronic airway obstruction, not elsewhere classified Active Problem 04/23/2018 Seun Jang Essential hypertension Active Problem 04/23/2018 Seun Jang Gynecomastia Active Problem 04/23/2018 Seun Jang Dysuria Active Diagnosis 12/07/2015 Seun Jang Other muscle spasm 11/17/2018 [facility] [place] Pain in thoracic spine 11/17/2018 [facility] [place] Spondylosis without myelopathy or radiculopathy, lumbar region 11/17/2018 [facility] [place] Spondylosis without myelopathy or radiculopathy, cervical region 11/17/2018 [facility] [place] Spondylosis without myelopathy or radiculopathy, thoracic region 11/17/2018 [facility] [place] Medications Medication Details Route Status Patient Instructions Ordering Provider Order Date Source Baclofen 1 tablet qhs and 1/2 tab bid prn muscle spasms Orally Active 10 mg Orally as directed Buxbaum 04/21/2018 Seun Jang Augmentin 1 tablet Orally Active 875-125 MG Orally Twice a day with food Buxbaum 12/11/2015 Seun Jang HydrALAZINE HCl 1 tablet Orally Active 50 mg Orally three times a day (tid) Buxbaum 03/19/2015 Seun Jang Triamcinolone Acetonide 1 application to affected area Externally Active 0.5 % Externally Twice a day Buxbaum 02/05/2015 Seun Jang Triamcinolone Acetonide 1 application to affected area Externally Active 0.05 % Externally Twice a day Buxbaum 02/05/2015 Seun Jang HydrALAZINE HCl 1 tablet Orally Active 50 mg Orally three times a day (tid) Buxbaum Seun Jang Spironolactone 1 tablet Orally Active 25 MG Orally Buxbaum Seun Jang Amiodarone HCl 1 tablet Orally Active 200 MG Orally Once a day Buxbaum Seun E Buxbaum Rivaroxaban 1 tablet with food Orally Active 20 MG Orally Once a day Buxbauflako Salguero Buxbaum Clonidine HCl 1 tablet Orally Active 0.2 MG Orally twice a day (bid) Buxbaum Suen Salguero Buxbaum Tamsulosin HCl as directed Orally Active 0.4 MG Orally Buxbauflako Salguero Buxbaum Torsemide as directed Orally Active 20 MG Orally Buxbaum Seun Salguero Buxbaum Amlodipine Besylate 1 tablet Orally Active 10 MG Orally Once a day Buxbauflako Salguero Buxbaum Torsemide 1 tablet Orally Active 5 MG Orally every other day Buxbauflako Salguero Buxbaum Co Q 10 1 capsule with a meal Orally Active 200 MG Orally Once a day Buxbauflako Salguero Buxbaum Metoprolol Tartrate 1 tablet with food Orally Active 100 mg Orally daily Buxbauflako Salguero Buxbaum Ezetimibe 1 tablet Orally Active 10 MG Orally Once a day Buxbdemar Salguero Buxbaum Labetalol HCl 1 tablet Orally Active 300 MG Orally twice a day (bid) Buxbauflako Kohli E Buxbaum Hydrochlorothiazide 1 tablet Orally Active 25 MG Orally Once a day Buxbauflako Salguero Buxbaum Colchicine 1 tablet Orally Active 0.6 MG Orally twice a day (bid) Buxbauflako Kohli E Buxbaum Labetalol HCl 1 tablet Orally Active 300 MG Orally twice a day (bid) Buxbauflako Salguero Buxbaum Torsemide 1 tablet Orally Active 5 MG Orally every other day Buxbdemar Salguero Buxbaum Hydrochlorothiazide 1 tablet Orally Active 25 MG Orally Once a day Buxbdemar Salguero Buxbaum HydrALAZINE HCl 1 tablet Orally Active 50 mg Orally three times a day (tid) Buxbauflako Salguero Buxbaum Clonidine HCl 1 tablet Orally Active 0.3 MG Orally Once a day Buxbauflako Salguero Buxbaum Co Q 10 1 capsule with a meal Orally Active 200 MG Orally Once a day B[place]baum Seun E Buxbaum NiCARdipine HCl ER 1 capsule Orally Active 30 MG Orally Twice a day Buxbauflako Salguero Buxbaum Pravastatin Sodium 1 tablet Orally Active 40 MG Orally Once a day B[place]baum Seun E Buxbaum Amlodipine Besylate 5 Mg Tablet Daily Active [facility] Clonidine Hcl 0.3 Mg Tablet Daily Active [facility] Hydralazine Hcl 25 Mg Tab Twice A Day Active [facility] Hydrochlorothiazide 25 Mg Tablet Daily Active [facility] Labetalol Hcl 300 Mg Tablet Twice A Day Active [facility] Pravastatin Sodium 40 Mg Tablet Daily Active [facility] Torsemide 20 Mg Tablet As Needed Active [facility] Allergies, Adverse Reactions, Alerts Substance Category Reaction Severity Reaction type Status Date Reported Comments Source Atorvastatin JOINT PAIN Intermediate Allergy to Substance Active 03/10/2016 [facility] Lipitor Adverse Reaction Info Not Available Adverse Reaction Active 04/21/2018 Seun Jang Immunizations No Data Provided for This Section Results No Data Provided for This Section Pathology Reports No Data Provided for This Section Diagnostic Reports Report Value Date Source Spine lumbar 2 or 3 views DX Clinical Indication: Pain Comparison: None Technique: 3 views of the lumbar spine. FINDINGS: Transitionalized lumbosacral junction noted. For the sake of nomenclature, 5 lumbar spine are assumed. There is no radiographic evidence of fracture. The vertebral body heights are maintained. Normal alignment. No evidence of significant listhesis. The SI joints are intact. There is diffuse degenerative change of the lumbar spine. Scattered regions of disc space narrowing with endplate osteophytes. This is most severe in the lower lumbar spine from levels of L3-S1. There is facet arthrosis, most prominent levels of L4-L5 and L5-S1. Normal alignment of facet joints. There are vascular calcifications of the aorta. Otherwise, paraspinal soft tissues within normal limits on these radiographs. If there is further concern or neurological abnormalities on clinical exam, MRI or CT of the lumbar spine may be performed for complete assessment. IMPRESSION: No radiographic evidence of acute abnormality. Diffuse degenerative change of the lumbar spine. SL: JESSICA 04/29/2018 [facility] [place] Spine cervical 2 or 3 view DX Radiographs of the CERVICAL SPINE Clinical Indication: Cervicalgia Comparison: None. FINDINGS: 3 views of the cervical spine are obtained. There is straightening of the cervical spine, which can be seen in the settings of muscle spasms, or may be related to patient positioning. No fractures or subluxations. The vertebral body heights appear normal. There is diffuse degenerative change of the cervical spine. This is most prominent levels of C3- C7. There is endplate sclerosis, endplate osteophytes and diffuse disc space narrowing. There is also uncovertebral hypertrophy and facet arthrosis. The atlanto-dental alignment is not well evaluated from the overlapping teeth on the open mouth view, however grossly normal. The prevertebral soft tissues appear normal. If there is further concern or neurological abnormalities on clinical exam, MRI or CT of the cervical spine may be performed for complete assessment. IMPRESSION: No evidence of acute abnormality. Moderate degenerative change of the cervical spine. SL: [facility] 04/29/2018 [facility] Spine thoracic 2 views DX Clinical Indication: - M62.838 Other muscle spasm,M54.6 Pain in thoracic spine,M54.2 Cervicalgia. Comparison: None. Technique: 3 views of the thoracic spine. FINDINGS: There is normal alignment of the thoracic spine. There are no fractures or subluxations. The anterior paraspinal soft tissues are unremarkable. There are diffuse degenerative changes of thoracic spine. Diffuse disc space narrowing with endplate osteophytes. Evidence of bridging syndesmophytes. The visualized posterior elements are unremarkable. If there is further concern or neurological abnormalities on clinical exam, recommend CT or MRI of the thoracic spine for complete assessment. IMPRESSION: No evidence of acute abnormality. Moderate diffuse degenerative change of the thoracic spine. SL: [facility] 04/29/2018 [facility] [place] - DIGITAL MAMMO DX [place] MALE BILATERAL FIRST EVER DIGITAL DIAGNOSTIC MAMMOGRAM WITH CAD: 02/19/2015 CLINICAL: N64.4 Mastodynia, N64.89 Other Specified Disorders Of Breast. Current study was evaluated with a Computer Aided Detection (CAD) system. There are no comparison films available as this is the patient's baseline mammogram. There is benign gynecomastia in the left breast. No significant breast tissue is seen on the right. No significant masses, calcifications, or other findings are seen in either breast. IMPRESSION: BENIGN Benign gynecomastia in the left breast. There is no mammographic evidence of malignancy. These results were discussed with the patient. Follow up should be based on concerning physical exam as indicated. Adalberto Lundberg M.D. cm/:02/19/2015 15:07:53 Patrol Agent: Brigida WORLEY(R)(M), Onur Greer This exam was dictated and interpreted by [id number] for CLAUDIA Jeronimo 15. letter sent: Normal exam Mammogram BI-RADS: 2 Benign 02/19/2015 BOZENA Greer Consultation Notes No Data Provided for This Section Discharge Summaries No Data Provided for This Section History and Physicals No Data Provided for This Section Vital Signs Vital Sign Value Date Comments Source Weight 223.8 04/21/2018 Seun E Buxbaum Height 70.5 04/21/2018 Seun E Buxbaum Temperature Oral (F) 97.1 F 04/21/2018 Seun E Buxbaum Heart Rate 63 04/21/2018 Seun E Buxbaum Diastolic (mm Hg) 82 04/21/2018 Seun E Buxbaum Systolic (mm Hg) 134 04/21/2018 Seun E Buxbaum Weight 227 09/18/2016 Seun E Buxbaum Height 70.5 09/18/2016 Seun E Buxbaum Temperature Oral (F) 98.8 F 09/18/2016 Seun E Buxbaum Heart Rate 78 09/18/2016 Seun E Buxbaum Diastolic (mm Hg) 72 09/18/2016 Seun E Buxbaum Systolic (mm Hg) 130 09/18/2016 Seun E Buxbaum Weight 238 12/04/2015 Seun E Buxbaum Height 70.5 12/04/2015 Seun E Buxbaum Temperature Oral (F) 97.5 F 12/04/2015 Seun E Buxbaum Heart Rate 78 12/04/2015 Seun E Buxbaum Diastolic (mm Hg) 94 12/04/2015 Seun E Buxbaum Systolic (mm Hg) 172 12/04/2015 Seun E Buxbaum Weight 239 04/23/2015 Seun E Buxbaum Height 70.5 04/23/2015 Seun E Buxbaum Temperature Oral (F) 97.8 F 04/23/2015 Seun E Buxbaum Heart Rate 78 04/23/2015 Seun E Buxbaum Diastolic (mm Hg) 82 04/23/2015 Seun E Buxbaum Systolic (mm Hg) 156 04/23/2015 Seun E Buxbaum Weight 241 03/19/2015 Seun E Buxbaum Height 70.5 03/19/2015 Seun Jang Temperature Oral (F) 97.1 F 03/19/2015 Seun Jang Heart Rate 78 03/19/2015 Seun Jang Diastolic (mm Hg) 98 03/19/2015 Seun Jang Systolic (mm Hg) 178 03/19/2015 Seun Jang Encounters Location Location Details Encounter Type Encounter Number Reason For Visit Attending Provider ADM Date DC Date Status Source Se[place] Unknown [id number] 02/01/2015 02/01/2015 Seun Jang DO, [place] Unknown [id number] 02/01/2015 02/01/2015 Seun Jang DO, [place] Unknown [id number] 02/01/2015 02/01/2015 Seun Jang DO, [place] Unknown [id number] 02/01/2015 02/01/2015 Seun Jang DO, [place] Unknown [id number] 02/01/2015 02/01/2015 Seun Jang DO, [place] Unknown [id number] 02/05/2015 02/05/2015 Seun Jang [facility] [place] [facility] [id number] Seun Jang 02/19/2015 02/20/[address] [facility] [place] Seun Jang DO, PA Unknown [id number] 03/19/2015 03/19/2015 Seun Jang DO, [place] Unknown [id number] 03/19/2015 03/19/2015 Seun Jang DO, [place] Unknown [id number] 03/19/2015 03/19/2015 Seun Jang DO, PA Unknown [id number] 03/19/2015 03/19/2015 Seun Jang DO, PA Unknown [id number] 03/19/2015 03/19/2015 Seun Jang DO, PA BP issues [id number] 04/23/2015 04/23/2015 Seun Jang DO, PA BP issues [id number] 04/23/2015 04/23/2015 Seun Jang DO, PA BP issues [id number] 04/23/2015 04/23/2015 Seun Jang DO, PA BP issues [id number] 04/23/2015 04/23/2015 Seun Jang DO, PA Unknown [id number] 12/04/2015 12/04/2015 Seun Jang DO, PA Unknown [id number] 12/04/2015 12/04/2015 Seun Jang DO, PA Unknown [id number] 12/04/2015 12/04/2015 Seun Kohli Jose MAmelia Jang DO PA Unknown [id number] 12/11/2015 12/11/2015 Seun Kohli Jose MAmelia Jang DO PA Unknown [id number] 12/11/2015 12/11/2015 Seun Kohli Jose MAmelia Jang DO PA back pain [id number] 12/16/2015 12/16/2015 Seun Jang Departed Emergency Room [id number] CESAR BLEVINS MD 10/23/2017 10/23/2017 [facility] Outpatient [facility] Diag Services [id number] Senu Jang 04/29/2018 04/30/2018 [facility] OP Therapy Patients [id number] Bimal Cortez Annabel 06/02/2018 07/02/2018 [facility] Procedures No Data Provided for This Section Assessment and Plan No Data Provided for This Section Plan of Care Plan of Care Date Source Discharge Date 10/23/17 1:05pm Disposition HOME, SELF-CARE Condition at Discharge Stable Instructions/Education Provided Congestive Heart Failure Urinary Tract Infection - Men Forms Provided Work/School Excuse Prescriptions See Medication Section Referrals DR THIERRY MD Order Date: Call for an appointment Address: [facility] Additional Instructions/Education DO NOT MISS YOUR ALREADY SCHEDULED APPOINTMENT WITH DOCTOR THIS WEDNESDAY IN THE MEDICAL CENTER; TAKE ALL COPIES YOU HAVE BEEN GIVEN TODAY; YOUR DOCTOR WAS CALLED AND SPOKE DR BENTLEY DE LA [place] FOR TREATMENT PLAN RENDERED TODAY. RETURN IF NEEDED FOR ANY REASON. TAKE ENTIRE COURSE OF ANTIBIOTICS GIVEN. 10/23/2017 [facility] Social History Social History Date Source No data available for this section 07/02/2018 [facility] No data available for this section 04/30/2018 [facility] [place] Smoking Status Start Date Stop Date Former smoker 10/23/2017 [facility] Social History ElementQualifiersDate Reported Tobacco Use: . Are you a: former smoker after smoking for 40 years about 1 1/2 packs per day, What year did you quit? 2011December 04, 2015 Use of recreational / street drugs? . Answer: No December 04, 2015 Marital Status: . December 04, 2015 Do you exercise? . Answer: No December 04, 2015 Do you drink alcohol? . Status: Yes, Type: Moderately December 04, 2015 12/04/2015 Seun Jang Family History Value Date Source QualifierDescriptionCommentDate Reported Maternal Grandmother Comment not available December 04, 2015 Paternal Grandmother Comment not available December 04, 2015 Siblings Comment not available December 04, 2015 Maternal Grandfather Comment not available December 04, 2015 Children alive Comment not available December 04, 2015 Father Comment not available December 04, 2015 Paternal Grandfather Comment not available December 04, 2015 Mother Comment not available December 04, 2015 Other: Comment not available December 04, 2015 12/07/2015 Seun Jang QualifierDescriptionCommentDate Reported Maternal Grandmother Comment not available Apr 23, 2015 Paternal Grandmother Comment not available Apr 23, 2015 Siblings Comment not available Apr 23, 2015 Maternal Grandfather Comment not available Apr 23, 2015 Children alive Comment not available Apr 23, 2015 Father Comment not available Apr 23, 2015 Paternal Grandfather Comment not available Apr 23, 2015 Mother Comment not available Apr 23, 2015 Other: Comment not available Apr 23, 2015 04/24/2015 Seun Jang QualifierDescriptionCommentDate Reported Maternal Grandmother Comment not available Mar 19, 2015 Paternal Grandmother Comment not available Mar 19, 2015 Siblings Comment not available Mar 19, 2015 Maternal Grandfather Comment not available Mar 19, 2015 Children alive Comment not available Mar 19, 2015 Father Comment not available Mar 19, 2015 Paternal Grandfather Comment not available Mar 19, 2015 Mother Comment not available Mar 19, 2015 Other: Comment not available Mar 19, 2015 03/20/2015 Seun Jang Advance Directives Order Name Results Value Date Source Advance Directives Advance Directives Directive Response Recorded Date/Time Does the patient have an advance directive? No 03/06/16 12:46pm If yes, is advance directive on file with [facility]? No 03/06/16 12:46pm If not on file with [facility] will patient provide a copy? No 03/06/16 12:46pm Do you have a Directive to Physician? No 10/23/17 1:52pm Do you have a Medical Power of Front Of House Manager? No 10/23/17 1:52pm Do you have an out of hospital Do Not Resuscitate Order? No 10/23/17 1:52pm Do you have any special needs we should be aware of? No 10/23/17 1:52pm Do you have a support person here with you today? Yes 10/23/17 1:52pm Did patient receive Notice of Privacy Practices? Yes 10/23/17 1:52pm Did patient receive patient rights and responsibilities? Yes 10/23/17 1:52pm 10/23/2017 [facility] Functional Status No Data Provided for This Section
--- OUTSIDE RECORDS SUMMARY | 2018-11-24 15:21 | XMS REPORT ---
Author Author Seun Jang Organization [employer] Address Unknown Phone Unavailable Care Team Providers Care Crop Pest Control Specialist Name Role Phone Seun Jang CP Unavailable Allergies, Adverse Reactions, Alerts Substance Reaction Event Type Lipitor Info Not Available Drug Allergy Problems Problem Type Condition Code Onset Dates Condition Status Assessment RLS (restless legs syndrome) G25.81 Active Assessment Acute bilateral low back pain without sciatica M54.5 Active Assessment Thoracic spine pain M54.6 Active Assessment Spasm of muscle M62.838 Active Assessment Cervicalgia M54.2 Active Problem Other specified disorders of breast N64.89 Active Problem Mastodynia N64.4 Active Problem Shortness of breath R06.02 Active Problem Impotence of organic origin 607.84 Active Problem Atrial fibrillation I48.91 Active Problem Other and unspecified hyperlipidemia 272.4 Active Problem Other and unspecified hyperlipidemia E78.5 Active Problem Annual physical exam Z00.00 Active Problem Acute bronchitis due to other specified organisms J20.8 Active Problem Cervicalgia M54.2 Active Problem RLS (restless legs syndrome) G25.81 Active Problem Benign hypertensive heart disease without congestive heart failure 402.10 Active Problem Candidiasis of skin and nails 112.3 Active Problem Spasm of muscle M62.838 Active Problem Neoplasm of uncertain behavior of skin 238.2 Active Problem Hyperplastic colonic polyp, unspecified part of colon K63.5 Active Problem Gastroesophageal reflux disease without esophagitis K21.9 Active Problem Acute bilateral low back pain without sciatica M54.5 Active Problem Thoracic spine pain M54.6 Active Problem Breast pain in male 611.71 Active Problem Fullness of breast 611.89 Active Problem Vitamin D deficiency 268.9 Active Problem BPH w/o urinary obs/LUTS 600.00 Active Problem Hx of tobacco use, presenting hazards to health Z87.891 Active Problem Chronic airway obstruction, not elsewhere classified J44.9 Active Problem Essential (primary) hypertension I10 Active Problem Gynecomastia N62 Active Medications Medication Code System Code Instructions Start Date End Date Status Dosage HydrALAZINE HCl [facility] 12246963106 50 mg Orally three times a day (tid) Active 1 tablet Baclofen [facility] 09238150058 10 mg Orally as directed Apr 21, 2018 August 19, 2018 Active 1 tablet qhs and 1/2 tab bid prn muscle spasms Spironolactone [facility] 10357621493 25 MG Orally Active 1 tablet Amiodarone HCl [facility] 43460967274 200 MG Orally Once a day Active 1 tablet Rivaroxaban [facility] [address]-42 20 MG Orally Once a day Active 1 tablet with food Clonidine HCl [facility] 32131654769 0.2 MG Orally twice a day (bid) Active 1 tablet Tamsulosin HCl [facility] [address]-01 0.4 MG Orally Active as directed Torsemide [facility] 46658004992 20 MG Orally Active as directed Amlodipine Besylate [facility] 28765722353 10 MG Orally Once a day Active 1 tablet Torsemide [facility] 70470386478 5 MG Orally every other day Active 1 tablet Co Q 10 [facility] 31298472991 200 MG Orally Once a day Active 1 capsule with a meal Metoprolol Tartrate [facility] [address]-24 100 mg Orally daily Active 1 tablet with food Ezetimibe [facility] 23569156311 10 MG Orally Once a day Active 1 tablet Labetalol HCl [facility] 30175061179 300 MG Orally twice a day (bid) Active 1 tablet Hydrochlorothiazide [facility] 03400092481 25 MG Orally Once a day Active 1 tablet Colchicine [facility] [address]-08 0.6 MG Orally twice a day (bid) Active 1 tablet Vital Signs Date/Time: Apr 21, 2018 BMI 31.65 Index Weight 223.8 lbs Height 70.5 in Temperature 97.1 F Cardiac Monitoring Heart Rate 63 /min Blood Pressure Diastolic 82 mm Hg Blood Pressure Systolic 134 mm Hg Results No Known Results Summary Purpose [employer] Submission
--- OUTSIDE RECORDS SUMMARY | 2018-11-24 15:21 | XMS REPORT ---
Author Author Seun Jang [facility] eClinicalWorks Address Unknown Phone Unavailable Care Team Providers Care Sausage Wrapper Name Role Phone Seun Jang CP Unavailable Allergies, Adverse Reactions, Alerts Substance Reaction Event Type Lipitor Info Not Available Drug Allergy Encounters Encounter Location Date Unknown Se[place], [place] Feb 01, 2015 Unknown Seun Jang [place], [place] Feb 05, 2015 Unknown Seun Jang [place], [place] Mar 19, 2015 Problems Problem Type Condition ICD-9 Code Onset Dates Condition Status Problem BPH w/o urinary obs/LUTS 600.00 Active Problem Candidiasis of skin and nails 112.3 Active Problem Vitamin D deficiency 268.9 Active Problem Essential (primary) hypertension I10 Active Problem 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 [address]-97 0.3 MG Orally Once a day Active [address] [facility] [address]-75 50 mg Orally three times a day (tid) Mar 19, 2015 Active [address] [facility] [address]-20 0.5 % Externally Twice a day Feb 05, 2015 Active 1 application to affected area NiCARdipine HCl ER [facility] [address]-19 30 MG Orally Twice a day Active [address] [facility] [address]-62 40 MG Orally Once a day Active 1 tablet Co Q [address] [facility] [address]-81 200 MG Orally Once a day Active 1 capsule with a meal Labetalol HCl [facility] [address]-96 300 MG Orally twice a day (bid) Active [address] [facility] [address]-76 25 MG Orally Once a day Active 1 tablet Social History Social History Element Qualifiers Date Reported Tobacco Use: . Are you a: former smoker after smoking for 40 years about 1 1/2 packs per day, What year did you quit? 2011Mar 19, 2015 Use of recreational / street drugs? . Answer: No Mar 19, 2015 Marital Status: . Mar 19, 2015 Do you drink alcohol? . Status: Yes, Type: Moderately Mar 19, 2015 Family history Qualifier Description Comment Date Reported Maternal Grandmother Comment not available Mar [...] Other: Comment not available Mar 19, 2015 Vital Signs Date/Time: Mar 19, 2015 Weight 241 lbs Height 70.5 in Temperature 97.1 F Cardiac Monitoring Heart Rate 78 /min Blood Pressure Diastolic 98 mm Hg Blood Pressure Systolic 178 mm Hg Summary Purpose eClinicalWorks Submission
--- OUTSIDE RECORDS SUMMARY | 2018-11-24 15:22 | XMS REPORT ---
Author Author Seun Jang Organization eClinicalWorks Address Unknown Phone Unavailable Care Team Providers Care Student Ministries Director Name Role Phone Seun Jang CP Unavailable Allergies, Adverse Reactions, Alerts Substance Reaction Event Type Lipitor Info Not Available Drug Allergy Encounters Encounter Location Date Unknown Se[place] Jang [place], [place] December 04, 2015 Unknown Seun Jang DO, [place] Feb 01, 2015 Unknown Seun Jang DO, [place] Mar 19, 2015 BP issues Seun Jang DO, [place] Apr 23, 2015 Problems Problem Type Condition ICD-9 Code Onset Dates Condition Status Problem Neoplasm of uncertain behavior of skin 238.2 Active Problem Benign hypertensive heart disease without congestive heart failure 402.10 Active Problem Other and unspecified hyperlipidemia 272.4 Active Problem Other and unspecified hyperlipidemia E78.5 Active Assessment Atrial fibrillation I48.91 Active Problem Chronic airway obstruction, not elsewhere classified J44.9 Active Assessment Dysuria R30.0 Active Assessment Other and unspecified hyperlipidemia E78.5 Active Problem Atrial fibrillation I48.91 Active Problem Gynecomastia N62 Active Problem Essential (primary) hypertension I10 Active Problem Hx of tobacco use, presenting hazards to health Z87.891 Active Problem Shortness of breath R06.02 Active Problem Other specified disorders of breast N64.89 Active Problem Mastodynia N64.4 Active Assessment Chronic airway obstruction, not elsewhere classified J44.9 Active Assessment Essential (primary) hypertension I10 Active Problem Vitamin D deficiency 268.9 Active Problem Candidiasis of skin and nails 112.3 Active Problem Impotence of organic origin 607.84 Active Problem Breast pain in male 611.71 Active Problem BPH w/o urinary obs/LUTS 600.00 Active Problem Fullness of breast 611.89 Active Medications Medication Code System Code Instructions Start Date End Date Status Dosage Triamcinolone Acetonide [facility] [address]-76 0.05 % Externally Twice a day Feb 05, 2015 Active 1 application to affected area HydrALAZINE HCl [facility] [address]-52 50 mg Orally three times a day (tid) Active 1 tablet Clonidine HCl [facility] [address]-19 0.3 MG Orally Once a day Active 1 tablet Hydrochlorothiazide [facility] [address]-60 25 MG Orally Once a day Active 1 tablet NiCARdipine HCl ER [facility] [address]-07 30 MG Orally Twice a day Active 1 capsule HydrALAZINE HCl [facility] [address]-85 50 mg Orally three times a day (tid) Active 1 tablet Labetalol HCl [facility] [address]-22 300 MG Orally twice a day (bid) Active 1 tablet Co Q 10 [facility] [address]-42 200 MG Orally Once a day Active 1 capsule with a meal Social History Social History Element Qualifiers Date [...] Status: Yes, Type: Moderately December 04, 2015 Family history Qualifier Description Comment Date Reported Maternal Grandmother Comment not available December [...] Other: Comment not available December 04, 2015 Vital Signs Date/Time: December 04, 2015 Weight 238 lbs Height 70.5 in Temperature 97.5 F Cardiac Monitoring Heart Rate 78 /min Blood Pressure Diastolic 94 mm Hg Blood Pressure Systolic 172 mm Hg Summary Purpose eClinicalWorks Submission
--- OUTSIDE RECORDS SUMMARY | 2018-11-24 15:22 | XMS REPORT ---
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 failure 402.10 Active Assessment Essential (primary) hypertension I10 Active Problem Essential (primary) hypertension I10 Active Assessment Acute bronchitis due to other specified organisms J20.8 Active Problem Gynecomastia N62 Active Problem Hx of tobacco use, presenting hazards to health Z87.891 Active Problem Shortness of breath R06.02 Active Problem Gastroesophageal reflux disease without esophagitis K21.9 Active Problem Acute bronchitis due to other specified organisms J20.8 Active Problem Mastodynia N64.4 Active Problem Other specified disorders of breast N64.89 Active Problem Annual physical exam Z00.00 Active Assessment Annual physical exam Z00.00 Active Problem Other and unspecified hyperlipidemia E78.5 Active Problem Chronic airway obstruction, not elsewhere classified J44.9 Active Problem Hyperplastic colonic polyp, unspecified part of colon K63.5 Active Problem Atrial fibrillation I48.91 Active Problem Vitamin D deficiency 268.9 Active Problem Candidiasis of skin and nails 112.3 Active Problem Impotence of organic origin 607.84 Active Problem BPH w/o urinary obs/LUTS 600.00 Active Problem Neoplasm of uncertain behavior of skin 238.2 Active Problem Other and unspecified hyperlipidemia 272.4 Active Problem Breast pain in male 611.71 Active Problem Fullness of breast 611.89 Active Medications Medication Code System Code Instructions Start Date End Date Status Dosage Labetalol HCl [facility] [address]-12 300 MG Orally twice a day (bid) Active 1 tablet Torsemide [facility] [address]-40 5 MG Orally every other day Active 1 tablet Hydrochlorothiazide [facility] [address]-63 25 MG Orally Once a day Active 1 tablet HydrALAZINE HCl [facility] [address]-45 50 mg Orally three times a day (tid) Active 1 tablet Clonidine HCl [facility] [address]-23 0.3 MG Orally Once a day Active 1 tablet Co Q 10 [facility] [address]-55 200 MG Orally Once a day Active 1 capsule with a meal Vital Signs Date/Time: September 18, 2016 BMI 32.11 Index Weight 227 lbs Height 70.5 in Temperature 98.8 F Cardiac Monitoring Heart Rate 78 /min Blood Pressure Diastolic 72 mm Hg Blood Pressure Systolic 130 mm Hg Results No Known Results Summary Purpose eClinicalWorks Submission
--- OUTSIDE RECORDS SUMMARY | 2018-11-24 15:22 | XMS REPORT ---
Author Author Seun Jang Organization eClinicalWorks Address Unknown Phone Unavailable Care Team Providers Care Passenger Service Supervisor Name Role Phone Seun Jang CP Unavailable Encounters Encounter Location Date Unknown Seun Jang DO, [place] December 04, 2015 Unknown Seun Jang DO, [place] December 11, 2015 Unknown Seun Jang DO, [place] Feb [...] obstruction, not elsewhere classified J44.9 Active Problem Atrial fibrillation I48.91 Active Problem Gynecomastia N62 Active Problem Essential (primary) hypertension I10 Active Problem Hx of tobacco use, presenting hazards to health Z87.891 Active Problem Shortness of breath R06.02 Active Problem Other specified disorders of breast N64.89 Active Problem Mastodynia N64.4 Active Problem Vitamin D deficiency 268.9 Active Problem Candidiasis of skin and nails 112.3 Active Problem Impotence of organic origin 607.84 Active Problem Breast pain in male 611.71 Active Problem BPH w/o urinary obs/LUTS 600.00 Active Problem Fullness of breast 611.89 Active Medications Medication Code System Code Instructions Start Date End Date Status Dosage Augmentin [facility] [address]-04 875-125 MG Orally Twice a day with food December 11, 2015 Dec 21, 2015 Active 1 tablet Social History Social History [...] Status: Yes, Type: Moderately December 04, 2015 Summary Purpose eClinicalWorks Submission
--- OUTSIDE RECORDS SUMMARY | 2018-11-24 15:22 | XMS REPORT ---
Author Author Seun Jang Organization eClinicalWorks Address Unknown Phone Unavailable Care Team Providers Care Esthetician And Manager Medical Spa Name Role Phone Seun Jang CP Unavailable Encounters Encounter Location Date Unknown Seun Jang DO, [place] December 04, 2015 Unknown Seun Jang DO, [place] December 11, 2015 back pain Seun Jang DO, [place] Dec 16, 2015 Unknown Seun Jang DO, [place] Feb [...] Active Problem Fullness of breast 611.89 Active Social History Social History Element Qualifiers Date [...]
--- OUTSIDE RECORDS SUMMARY | 2018-11-24 15:22 | XMS REPORT ---
Author Author Seun Jang Organization eClinicalWorks Address Unknown Phone Unavailable Care Team Providers Care Farmworker Diversified Crops Name Role Phone Seun Jang CP Unavailable Allergies, Adverse Reactions, Alerts Substance Reaction Event Type Lipitor Info Not Available Drug Allergy Encounters Encounter Location Date Unknown Seun Jang DO, [place] Feb 01, 2015 Unknown Seun Jang DO, [place] Mar 19, 2015 BP issues Seun Jang DO, [place] Apr 23, 2015 Problems Problem Type Condition ICD-9 Code Onset Dates Condition Status Problem Breast pain in male 611.71 Active Problem Neoplasm of uncertain behavior of skin 238.2 Active Problem Fullness of breast 611.89 Active Problem Hx of tobacco use, presenting hazards to health Z87.891 Active Problem Shortness of breath R06.02 Active Problem Chronic airway obstruction, not elsewhere classified J44.9 Active Problem Benign hypertensive heart disease without congestive heart failure 402.10 Active Problem Other and unspecified hyperlipidemia 272.4 Active Problem Gynecomastia N62 Active Problem Essential (primary) hypertension I10 Active Assessment Chronic airway obstruction, not elsewhere classified J44.9 Active Assessment Essential (primary) hypertension I10 Active Assessment Shortness of breath R06.02 Active Assessment Hx of tobacco use, presenting hazards to health Z87.891 Active Problem Impotence of organic origin 607.84 Active Problem BPH w/o urinary obs/LUTS 600.00 Active Problem Other specified disorders of breast N64.89 Active Problem Vitamin D deficiency 268.9 Active Problem Mastodynia N64.4 Active Problem Candidiasis of skin and nails 112.3 Active Medications Medication Code System Code Instructions Start Date End Date Status Dosage Co Q 10 [facility] [address]-45 200 MG Orally Once a day Active 1 capsule with a meal Hydrochlorothiazide [facility] [address]-41 25 MG Orally Once a day Active 1 tablet NiCARdipine HCl ER [facility] [address]-57 30 MG Orally Twice a day Active 1 capsule [facility]ALAZINE [facility] [address]-34 50 mg Orally three times a day (tid) Mar 19, 2015 Active 1 tablet Triamcinolone Acetonide [facility] [address]-97 0.5 % Externally Twice a day Feb 05, 2015 Active 1 application to affected area Labetalol HCl [facility] [address]-24 300 MG Orally twice a day (bid) Active 1 tablet Pravastatin Sodium [facility] [address]-45 40 MG Orally Once a day Active 1 tablet Clonidine HCl [facility] [address]-75 0.3 MG Orally Once a day Active 1 tablet HydrALAZINE HCl [facility] [address]-45 50 mg Orally three times a day (tid) Active 1 tablet Social History Social History Element Qualifiers Date Reported Tobacco Use: . Are you a: former smoker after smoking for 40 years about 1 1/2 packs per day, What year did you quit? 2011Apr 23, 2015 Use of recreational / street drugs? . Answer: No Apr 23, 2015 Marital Status: . Apr 23, 2015 Do you drink alcohol? . Status: Yes, Type: Moderately Apr 23, 2015 Family history Qualifier Description Comment Date Reported Maternal Grandmother Comment not available Apr [...] Other: Comment not available Apr 23, 2015 Vital Signs Date/Time: Apr 23, 2015 Weight 239 lbs Height 70.5 in Temperature 97.8 F Cardiac Monitoring Heart Rate 78 /min Blood Pressure Diastolic 82 mm Hg Blood Pressure Systolic 156 mm Hg Summary Purpose eClinicalWorks Submission
--- OUTSIDE RECORDS SUMMARY | 2018-11-24 15:23 | XMS REPORT | Summary of Care ---
Author Author [facility] [place] Address Unknown Phone Unavailable Encounter HQ Encntr_alias(FIN) [id number] Date(s): 04/29/18 - 04/29/18 [facility] [place] [address], [address] [place], [place] [id number]- [phone] Encounter Diagnosis Cervicalgia (Final) - 05/05/18 Other muscle spasm (Final) - Pain in thoracic spine (Final) - Spondylosis without myelopathy or radiculopathy, lumbar region (Final) - Spondylosis without myelopathy or radiculopathy, cervical region (Final) - Spondylosis without myelopathy or radiculopathy, thoracic region (Final) - Discharge Disposition: Home or Self Care Attending Physician: Seun Jang DO Referring Physician: Seun Jang DO Vital Signs No data available for this section Problem List No data available for this section Allergies, Adverse Reactions, Alerts No data available for this section Medications No data available for this section Results No data available for this section Immunizations No data available for this section Procedures No data available for this section Social History No data available for this section Assessment and Plan No data available for this section
--- OUTSIDE RECORDS SUMMARY | 2018-11-24 15:23 | XMS REPORT | Summary of Care ---
Author Author [facility] Outpatient Imaging [facility] [place] Address Unknown Phone Unavailable Encounter HQ Encntr_alias(FIN) [id number] Date(s): 02/19/15 - 02/19/15 [facility] [place] [address] [place], [place] [address]- [phone] Discharge Disposition: Home Attending Physician: Seun Jang DO Vital Signs No [...]
--- OUTSIDE RECORDS SUMMARY | 2018-11-24 15:23 | XMS REPORT | Summary of Care ---
Author Author [facility] Address Unknown Phone Unavailable Encounter HQ Encntr_alias(FIN) [id number] Date(s): 06/02/18 - 07/01/18 [facility] Discharge Disposition: Home or Self Care Attending Physician: Bimal Zelaya MD Vital Signs No data available for this [...]
--- OUTSIDE RECORDS SUMMARY | 2018-11-24 15:23 | XMS REPORT | Summary of Care ---
Author Author KATYA MAYA M.D. Organization Unknown Address [facility] Phone Unavailable Care Team Providers Care Silver Spray Worker Name Role Phone KATYA MAYA M.D. Unavailable Unavailable KATYA MEDINA Unavailable Unavailable Unavailable Unavailable Functional Status Name Dates Details Functional status health issues are not documented Status: Name Dates Details Cognitive status health issues are not documented Status: Problems Name Dates Details Lumbar strain (847.2, S39.012A) Status: Active Medications Name Dates Details amLODIPine Besylate TABS Active Metoprolol Tartrate 100 MG Oral Tablet * Refills: 0 Active Xarelto TABS * Refills: 0 Active Zetia 10 MG Oral Tablet * Refills: 0 Active Allergies and Adverse Reactions Name Dates Details Lipitor (Allergy) Status: Active Past Medical History Name Dates Details History of back pain (V13.59, Z87.39) Status: Resolved History of cardiac disorder (V12.50, Z86.79) Status: Resolved History of gout (V12.29, Z87.39) Status: Resolved History of hypertension (V12.59, Z86.79) Status: Resolved Procedures Procedure Dates Details History of Heart surgery Completed Immunization Name Dates Details Immunizations not documented Family History Name Dates Details Family history of Heart trouble (429.9, I51.9) Comments: Family History Status: Active Family history of hypertension (V17.49, Z82.49) Comments: Family History Status: Active Family history of cerebrovascular accident (CVA) (V17.1, Z82.3) Comments: Family History Status: Active Social History Name Dates Details Unknown if ever smoked Vital Signs Date Test Result Details No Known Vitals to report Results Date Description Value Details Results not documented Plan of Care Name Dates Details Planned Observations Planned Goals not documented Interventions Provided Plan* Patient Education/Instructions: * Patient Education Provided * Reassurance * Patient/Parent to call or return with any abnormal changes * Follow Up: * Please schedule an appointment as needed for any future problems or concerns. * Return to the clinic in 6-8 weeks or as needed. Instructions Name Dates Details Instructions not documented Encounters Appointment; KATYA MAYA M.D. Encounter Diagnosis: Problem not documented On: 20-May-2018 10:00 Appointment; KATYA MAYA M.D. Encounter Diagnosis: Problem not documented On: 01-Jul-2018 9:45
--- NOTE | 2018-11-24 16:26 | Diagnostic Imaging Report ---
EXAMINATION: CXR 2 VIEW - HOPD INDICATION: Fever COMPARISON: None FINDINGS: TUBES and LINES: None. LUNGS: The lungs are well inflated. There is patchy opacity at the right lung base. 16 mm opacity in the mid right lung zone adjacent to a linear opacity likely represents small amount of loculated fissural fluid. PLEURA: No pleural effusion or pneumothorax. HEART AND MEDIASTINUM: The cardiomediastinal silhouette is normal in size and contour. BONES AND SOFT TISSUES: No acute fracture or dislocation. UPPER ABDOMEN: No free air under the diaphragm. IMPRESSION: Patchy opacity at the right lung base may represent early pneumonia in the proper clinical setting. 16 mm opacity in the right mid lung zone adjacent to a linear opacity most likely represents small amount of loculated fissural fluid. RECOMMENDATIONS: Follow-up chest radiograph in 6-8 weeks to assess for resolution and exclude right mid lung lesion. Signed by: Fxo Pantoja MD on 11/24/2018 4:23 PM
[2018-11-24] MEDS ORDERED: LEVOFLOXACIN 750MG/D5W 150ML 150 ML IV ONE ×2 (17:00→17:17)
[2018-11-24 18:55] VITALS: BP 152/70
== END 2018-11-24 18:55 | disposition left against medical advice (07) ==
LOC: FSED 15:15
DX: R50.9 Fever, unspecified (principal); I21.4 Non-ST elevation (NSTEMI) myocardial infarction; J15.9 Unspecified bacterial pneumonia; I10 Essential (primary) hypertension; I48.91 Unspecified atrial fibrillation; I50.9 Heart failure, unspecified; Z87.891 Personal history of nicotine dependence
CPT/HCPCS: 71046; 80048; 80076; 81003; 82553; 83518; 83605; 83880; 84484; 85025; 85610; 87040; 87086; 87400; 93005; 99284

== ENCOUNTER → 2021-03-18 | Outpatient (CLI) | payer MEDICARE ==
[~2021-03-18] MED LIST changes: +AMIODARONE HCL200 MG PO; +FLOMAX0.4 MG PO; +LIVALO2 MG PO; +METOPROLOL SUCC50 MG PO; +NEXLIZET 180-11 EACH PO; +SPIRONOLACTONE25 MG PO
== END ==
LOC: US 08:30
PROVIDERS: ATTEND Internal Medicine Gastroenterology
DX: K76.0 Fatty (change of) liver, not elsewhere classified (principal); I10 Essential (primary) hypertension; Z86.010 Personal history of colon polyps; Z68.31 Body mass index [BMI] 31.0-31.9, adult
CPT/HCPCS: 76700

== ENCOUNTER → 2021-03-29 | Day surgery (SDC) | payer MEDICARE ==
[2021-03-26 09:49] LABS: BASOPHILS % 0.7 % (0.0-1.0); EOSINOPHILS # (AUTO) 0.1 (0.0-0.4); HEMATOCRIT 42.9 % (38.2-49.6); LYMPHOCYTES # (AUTO) 1.1 (1.0-3.2); LYMPHOCYTES % 18.9 % (18.0-39.1); MEAN CORPUSCULAR HEMOGLOBIN 30.2 pg (28-32); MEAN CORPUSCULAR HGB CONC 32.6 g/dL (31-35); MEAN CORPUSCULAR VOLUME 92.7 fL (81-99); MONOCYTES # (AUTO) 0.7 (0.2-0.8); MONOCYTES % 11.1 % (4.4-11.3); PLATELET COUNT 238 x10e3/uL (140-360); RED BLOOD COUNT 4.63 x10e6/uL (4.3-5.7); RED CELL DISTRIBUTION WIDTH 11.9 % (11.7-14.4)
[~2021-03-29] MED LIST changes: +FENTANYL CITRATE/PF 100MCG/2 ML INJ ONE; +HYOSCYAMINE SULFATE 0.5 MG/ML INJ ONE; +MIDAZOLAM HCL 2 MG/2 ML VIAL ONE; +PROPOFOL IV EMULSION 10 MG/ML 20 ML VIAL ONE
[2021-03-29 11:05] VITALS: BP 148/70
== END | disposition home or self-care (01) ==
LOC: OR 06:25
PROVIDERS: ATTEND Internal Medicine Gastroenterology
DX: K29.50 Unspecified chronic gastritis without bleeding (principal); D12.2 Benign neoplasm of ascending colon; D12.4 Benign neoplasm of descending colon; K31.7 Polyp of stomach and duodenum; K22.89 Other specified disease of esophagus; K57.30 Diverticulosis of large intestine without perforation or abscess without bleeding; K64.8 Other hemorrhoids; K21.9 Gastro-esophageal reflux disease without esophagitis; K76.0 Fatty (change of) liver, not elsewhere classified; G47.33 Obstructive sleep apnea (adult) (pediatric); I48.91 Unspecified atrial fibrillation; I10 Essential (primary) hypertension; Z88.8 Allergy status to other drugs, medicaments and biological substances; Z01.810 Encounter for preprocedural cardiovascular examination; Z01.812 Encounter for preprocedural laboratory examination; Z20.822 Contact with and (suspected) exposure to COVID-19; Z79.899 Other long term (current) drug therapy; Z68.31 Body mass index [BMI] 31.0-31.9, adult; Z87.891 Personal history of nicotine dependence
CPT/HCPCS: 36415; 43239; 45380; 45385; 85025; 88305; 88312; 93005; J1980; J2250; J2704; J3010; U0002